=== PATIENT | female | born 1950 | race Caucasian/White ===

== ENCOUNTER → 2020-09-28 10:38 | Outpatient (CLI) | payer MEDICARE, SELFPAY ==
[2020-09-28] MEDS: COVID-19 VACC #1, MRNA(MOD) 100 MCG/0.5 ML VIAL IM (11:27)
== END ==
PROVIDERS: Family Provider Family Medicine; PCP Family Medicine; Visit Provider Internal Medicine
DX: Z23 Encounter for immunization (principal)
CPT/HCPCS: 0011A; 91301

== ENCOUNTER → 2020-10-26 10:24 | Outpatient (CLI) | payer MEDICARE, SELFPAY ==
[2020-10-26] MEDS: COVID-19 VACC #2, MRNA(MOD) 100 MCG/0.5 ML VIAL IM (10:27)
== END ==
PROVIDERS: Family Provider Family Medicine; PCP Family Medicine; Visit Provider Internal Medicine
DX: Z23 Encounter for immunization (principal)
CPT/HCPCS: 0012A; 91301

== ENCOUNTER 2020-12-29 13:23 | Inpatient (IN) | payer MEDICARE, SELFPAY ==
[2020-12-29] VITALS (17 sets, daily range): BP systolic 121–162; BP diastolic 61–115; PULSE 82–111; RESP 20–43; TEMP 36–37; O2SAT 90–97; BMI 80.6; BMI 36.6
--- NOTE | 2020-12-29 13:38 | DI.RAD.S_ITS ---
PROCEDURE: XR CHEST 1V INDICATIONS: dyspnea TECHNIQUE: One view of the chest was acquired. COMPARISON: None. FINDINGS: Surgical changes and devices: Right axillary and breast clips.. Lungs and pleura: Moderate right pleural effusion. Right basilar atelectasis. Question mild pulmonary edema. Mediastinum: Mediastinal contours appear normal. Severe cardiomegaly. Bones and chest wall: No suspicious bony lesions. Overlying soft tissues appear unremarkable. IMPRESSION: Congestive heart failure Dictated by: Nitin Moe M.D. on 12/29/2020 at 13:59 Approved by: Nitin Moe M.D. on 12/29/2020 at 14:01
--- NOTE | 2020-12-29 13:55 | PC.NURSE ---
PIV attempt x2 unsuccessful. Pressure dressing applied.
--- NOTE | 2020-12-29 14:11 | PC.NURSE ---
placed patient on 2LNC, reports improvement almost immediately. Sats from 90-96%
[2020-12-29 14:18] LABS: Add Manual Diff / Slide Review NO; Basophils Absolute Auto 100 /uL (0-100); Basophils Percent Auto 0.9 % (0-2); Eosinophils Absolute Auto 100 /uL (0-450); Eosinophils Percent Auto 1.2 % (2-4); Hematocrit 37.4 % (36-46); Hemoglobin 12.1 g/dL (12.0-16.0); Lymphocytes Absolute Auto 1100 /uL (1100-4500); Lymphocytes Percent Auto 16.3 % (25-40); Mean Corpuscular HGB Conc 32.4 % (30-36); Mean Corpuscular Hemoglobin 30.7 PG (26-34); Mean Corpuscular Volume 94.6 fL (80-100); Monocytes Absolute Auto 500 /uL (0-900); Monocytes Percent Auto 7.1 % (3-14); Neutrophils Absolute Auto 5200 /uL (1500-7000); Neutrophils Percent Auto 74.5 % (50-75); Platelet Count 271 X10^3/uL (150-400); Red Blood Cell Count 3.96 X10^6/uL (4.0-5.2)
[2020-12-29 14:24] LABS: D Dimer 579 ng/mL (<230)
[2020-12-29 14:28] LABS: Alanine Aminotransferase 28 IU/L (<35); Albumin 3.9 g/dL (3.5-5.0); Alkaline Phosphatase 70 U/L (38-126); Aspartate Aminotransferase 45 IU/L (14-36); Bilirubin Total 0.8 mg/dL (0.2-1.3); Blood Urea Nitrogen 12 mg/dL (7-17); Carbon Dioxide 25 mmol/L (22-32); Chloride 106 mmol/L (98-107); Estimated Glomerular Filt Rate > 60.0 mL/min (>60); Globulin 3.8 g/dL (1.7-4.1); Glucose 114 mg/dL (80-110); Lipase 65 U/L (23-300); Magnesium 1.9 mg/dL (1.6-2.3); Sodium 137 mmol/L (137-145); Total Protein 7.7 g/dL (6.3-8.2)
[2020-12-29 14:31] LABS: HEMOLYSIS 92 (0-50)
[2020-12-29 14:32] LABS: COVID19 - ADMIT (NP swab/PCR) Negative (Negative)
[2020-12-29 14:39] LABS: NT-proBNP (BNP-Adult 18+) 1840 pg/mL (<125); Troponin I < 0.012 ng/mL (0.01-0.034)
--- NOTE | 2020-12-29 14:43 | ED_ITS ---
HPI - General Adult General Chief complaint: Shortness of Breath/Dyspnea Stated complaint: SOB, shoulders ache, feet swelling Time Seen by Provider: 12/29/20 13:38 Source: patient Mode of arrival: Ambulatory History of Present Illness HPI narrative: 70-year-old woman presents with increasing dyspnea and orthopnea to the point she was unable to lay down at all last night and unable to sleep. She notes that she had breast cancer in 1998 and has had her gallbladder out and other than that has had no further interaction with physicians or the medical community. She states that she has been feeling slightly more short of breath over the last week, does not describe palpitations, chest pain fevers or productive cough. She does note that her lower extremities do have a bit more swelling than usual. She notes that she has had an overall weight gain in the last year but does not specifically note any changes in the last few days. She denies headaches, weakness or dizziness. She has had no abdominal pain, vomiting, diarrhea, constipation. Related Data Allergies Allergy/AdvReac Type Severity Reaction Status Date / Time INGREDIENT: NDA - NO KNOWN Allergy Unknown Uncoded 12/10/17 12:55 DRUG ALLERGIES Review of Systems Review of Systems Narrative: Remainder of complete review of systems is otherwise unremarkable except for that included in the HPI. Patient History Social History Smoking Status: Current every day smoker Smoking Status: Current every day smoker tobacco type: cigarettes Substance Use Type: does not use Exam Narrative Exam Narrative: General: Fatigued appearing but no acute distress. Able to give a complete and coherent history, speaking in full sentences. Well- nourished well-developed HEENT: Moist mucous membranes, normal sclera with reactive pupils, Neck: Positive JVD when sitting upright, supple Respiratory: Lungs with bibasilar crackles. Full and symmetrical air movement Cardiac: Regular rate and rhythm no murmurs, distant heart sounds. No bruits Abdomen: Soft, nontender, good bowel tones, no flank pain Skin: Pale but otherwise Warm and dry, no rashes Neurologic: Grossly neurologically intact with no obvious asymmetries or abnormalities Extremities: No trauma, well perfused, her 1+ bilateral lower extremity edema Psych: Cooperative, appropriate insight and affect Initial Vital Signs Initial Vital Signs: Vital Signs Temperature 98.6 F 12/29/20 13:34 Pulse Rate 100 H 12/29/20 13:34 Respiratory Rate 24 12/29/20 13:34 Blood Pressure 158/102 H 12/29/20 13:34 Pulse Oximetry 91 12/29/20 13:34 Course Orders Ordered: ED Orders 12/29/20 13:37 EKG-12 Lead Stat 12/29/20 13:38 XR chest 1V Stat Urinalysis and Microscopic Stat 12/29/20 13:48 COVID19 - ADMIT (PHOTOCOPY OPERATOR swab/PCR) Stat 12/29/20 14:05 Complete Blood Count AUTO DIFF Stat Comprehensive Metabolic Panel Stat D Dimer Stat Lipase Stat Magnesium Stat NT-proBNP (BNP-Adult 18+) Stat Thyroid Stimulating Hormone Stat Troponin I Stat 12/29/20 14:48 CT angio chest PE protocol Stat Acetaminophen (Acetaminophen 325 Mg Tablet) 650 mg PO Q6HR PRN PRN Reason: Fever/Mild Pain (1-3) Enoxaparin Sodium (Enoxaparin 40 Mg/0.4 Ml Syringe) 40 mg SUBCUT DAILY ADRY Furosemide (Furosemide 40 Mg/4 Ml Vial) 40 mg IV 0800,1700 ADRY Ondansetron HCl (Ondansetron 4 Mg/2 Ml Inj) 4 mg IV Q8HR PRN PRN Reason: Nausea And Vomiting Discontinued Medications Furosemide (Furosemide 40 Mg/4 Ml Vial) 40 mg IV NOW ONE Stop: 12/29/20 15:18 Last Admin: 12/29/20 15:20 Dose: 40 mg Documented by: JEY Vital Signs Vital signs: Vital Signs - 8 hr 12/29/20 13:34 12/29/20 14:11 Temperature 98.6 F Pulse Rate 100 H Respiratory Rate 24 28 H Blood Pressure 158/102 H Pulse Oximetry 91 90 L Medical Decision Making Medical Records Medical records reviewed: Yes I reviewed the patient's medical records. Lab Data Lab results reviewed: Yes I reviewed the patient's lab results. Result diagrams: 12/29/20 14:05 12/29/20 14:05 Labs: Lab Results 12/29/20 12/29/20 12/29/20 Range/Units 13:48 14:05 14:05 WBC 7.0 (4.5-11.0) X10^3/uL RBC 3.96 L (4.0-5.2) X10^6/uL Hgb 12.1 (12.0-16.0) g/dL Hct 37.4 (36-46) % MCV 94.6 (80-100) fL MCH 30.7 (26-34) PG MCHC 32.4 (30-36) % RDW 15.0 H (11.6-14.8) % Plt Count 271 (150-400) X10^3/uL Neut % (Auto) 74.5 (50-75) % Lymph % (Auto) 16.3 L (25-40) % [place] % (Auto) 7.1 (3-14) % Eos % (Auto) 1.2 L (2-4) % Baso % (Auto) 0.9 (0-2) % Neut # (Auto) 5200 (6613-6226) /uL Lymph # (Auto) 1100 (2025-1286) /uL [place] # (Auto) 500 (0-900) /uL Eos # (Auto) 100 (0-450) /uL Baso # (Auto) 100 (0-100) /uL D-Dimer 579 H (<230) ng/mL Sodium (137-145) mmol/L Potassium (3.4-5.1) mmol/L Chloride (98-107) mmol/L Carbon Dioxide (22-32) mmol/L BUN (7-17) mg/dL Creatinine (0.52-1.04) mg/dL Estimated GFR (>60) mL/min BUN/Creatinine Ratio (6-22) Glucose (80-110) mg/dL Calcium (8.4-10.2) mg/dL Magnesium (1.6-2.3) mg/dL Total Bilirubin (0.2-1.3) mg/dL AST (14-36) IU/L ALT (<35) IU/L Alkaline Phosphatase (38-126) U/L Troponin I (0.01-0.034) ng/mL NT-Pro-B Natriuret Pep (<125) pg/mL Total Protein (6.3-8.2) g/dL Albumin (3.5-5.0) g/dL Globulin (1.7-4.1) g/dL Albumin/Globulin Ratio (1.0-2.8) Lipase (23-300) U/L TSH (0.47-4.68) uIU/mL SARS-CoV-2 (PCR) Negative (Negative) 12/29/20 12/29/20 Range/Units 14:05 14:05 WBC (4.5-11.0) X10^3/uL RBC (4.0-5.2) X10^6/uL Hgb (12.0-16.0) g/dL Hct (36-46) % MCV (80-100) fL MCH (26-34) PG MCHC (30-36) % RDW (11.6-14.8) % Plt Count (150-400) X10^3/uL Neut % (Auto) (50-75) % Lymph % (Auto) (25-40) % [place] % (Auto) (3-14) % Eos % (Auto) (2-4) % Baso % (Auto) (0-2) % Neut # (Auto) (1766-1194) /uL Lymph # (Auto) (2675-8295) /uL [place] # (Auto) (0-900) /uL Eos # (Auto) (0-450) /uL Baso # (Auto) (0-100) /uL D-Dimer (<230) ng/mL Sodium 137 (137-145) mmol/L Potassium 4.0 (3.4-5.1) mmol/L Chloride 106 (98-107) mmol/L Carbon Dioxide 25 (22-32) mmol/L BUN 12 (7-17) mg/dL Creatinine 0.50 L (0.52-1.04) mg/dL Estimated GFR > 60.0 (>60) mL/min BUN/Creatinine Ratio 24.0 H (6-22) Glucose 114 H (80-110) mg/dL Calcium 9.0 (8.4-10.2) mg/dL Magnesium 1.9 (1.6-2.3) mg/dL Total Bilirubin 0.8 (0.2-1.3) mg/dL AST 45 H (14-36) IU/L ALT 28 (<35) IU/L Alkaline Phosphatase 70 (38-126) U/L Troponin I < 0.012 (0.01-0.034) ng/mL NT-Pro-B Natriuret Pep 1840 H (<125) pg/mL Total Protein 7.7 (6.3-8.2) g/dL Albumin 3.9 (3.5-5.0) g/dL Globulin 3.8 (1.7-4.1) g/dL Albumin/Globulin Ratio 1.0 (1.0-2.8) Lipase 65 (23-300) U/L TSH 1.58 (0.47-4.68) uIU/mL SARS-CoV-2 (PCR) (Negative) Imaging Data Chest x-ray: Radiologist's Impression: FINDINGS: Surgical changes and devices: Right axillary and breast clips.. Lungs and pleura: Moderate right pleural effusion. Right basilar atelectasis. Question mild pulmonary edema. Mediastinum: Mediastinal contours appear normal. Severe cardiomegaly. Bones and chest wall: No suspicious bony lesions. Overlying soft tissues appear unremarkable. IMPRESSION: Congestive heart failure Dictated by: Nitin Moe M.D. on 12/29/2020 at 13:59 CT scan - chest: Radiologist's Impression: FINDINGS: Image quality: Excellent. Pulmonary arteries: Pulmonary arteries are normal in size, and demonstrate no intraluminal filling defects to suggest central pulmonary embolism. Lungs and pleura: Mild centrilobular emphysema. Subtle patchy bilateral ground -glass opacities may indicate developing pulmonary edema. There is a moderate right pleural effusion and right basilar atelectasis. There is atelectasis in the lingula adjacent to the left heart border. Central and peripheral airways are patent. Mediastinum: Mild cardiomegaly with left ventricular and left atrial enlargement. Shotty nonspecific mediastinal and bilateral hilar. Thoracic aorta is normal in caliber and enhancement. Esophagus is normal in caliber, without hiatal hernia. Bones and chest wall: No suspicious bony lesions. Ribs and thoracic spine appear intact throughout. Thyroid gland 8s unremarkable as visualized. No axillary or supraclavicular adenopathy. Right axillary clips. Abdomen: Probable lipid-laden right adrenal lymph node. Visualized upper abdominal solid organs otherwise appear normal in the early arterial phase of enhancement. IMPRESSION: 1. No evidence acute pulmonary emboli. 2. Congestive heart failure. Dictated by: Nitin Moe M.D. on 12/29/2020 at 15:27 ECG Data Attestation: I personally reviewed and interpreted this ECG as follows: Interpretation: Sinus rhythm at a rate of 95 Left bundle-branch block Not meeting criteria for STEMI in setting of bundle-branch block No comparisons available MDM Narrative Medical decision making narrative: 70-year-old woman with progressive orthopnea and dyspnea without fever or cough. D-dimer is slightly elevated even correcting for age and she does have a distant history of breast cancer. Clinical exam is most consistent with congestive heart failure as his chest x- ray however pulmonary pulmonary embolism as a cause of worsening symptoms certainly remains in the differential and a CT scan of the chest has been ordered. CT scan is consistent with congestive heart failure. No evidence of pneumonia n or pericardial effusion or pulmonary embolism patient will be admitted to the inpatient service for workup of initial presentation of congestive heart failure with oxygen saturations at 90% on 2 L, right pleural effusion no evidence of acute coronary syndrome, infection or pulmonary embolism Discharge Plan Departure Patient Disposition: Admitted As Inpatient Clinical Impression: Congestive heart failure Qualifiers: Heart failure type: unspecified Heart failure chronicity: acute Qualified Code(s): I50.9 - Heart failure, unspecified Admit Date/Time: 12/29/20 15:33 Admit Provider: Adolfo Lomeli
--- NOTE | 2020-12-29 14:48 | DI.CT.S_ITS ---
PROCEDURE: CT ANGIO CHEST PE PROTOCOL INDICATIONS: dyspnea, elevated d dimer TECHNIQUE: After the administration of intravenous contrast, 2 mm thick sections acquired from the pulmonary apices to the posterior costophrenic angles. 3-dimensional maximum intensity projection (MIP) coronal and sagittal reformats were then acquired through the thorax. For radiation dose reduction, the following was used: automated exposure control, adjustment of mA and/or kV according to patient size. COMPARISON: None. FINDINGS: Image quality: Excellent. Pulmonary arteries: Pulmonary arteries are normal in size, and demonstrate no intraluminal filling defects to suggest central pulmonary embolism. Lungs and pleura: Mild centrilobular emphysema. Subtle patchy bilateral ground-glass opacities may indicate developing pulmonary edema. There is a moderate right pleural effusion and right basilar atelectasis. There is atelectasis in the lingula adjacent to the left heart border. Central and peripheral airways are patent. Mediastinum: Mild cardiomegaly with left ventricular and left atrial enlargement. Shotty nonspecific mediastinal and bilateral hilar. Thoracic aorta is normal in caliber and enhancement. Esophagus is normal in caliber, without hiatal hernia. Bones and chest wall: No suspicious bony lesions. Ribs and thoracic spine appear intact throughout. Thyroid gland 8s unremarkable as visualized. No axillary or supraclavicular adenopathy. Right axillary clips. Abdomen: Probable lipid-laden right adrenal lymph node. Visualized upper abdominal solid organs otherwise appear normal in the early arterial phase of enhancement. IMPRESSION: 1. No evidence acute pulmonary emboli. 2. Congestive heart failure. Dictated by: Nitin Moe M.D. on 12/29/2020 at 15:27 Approved by: Nitin Moe M.D. on 12/29/2020 at 15:32
[2020-12-29 14:57] LABS: Thyroid Stimulating Hormone 1.58 uIU/mL (0.47-4.68)
[2020-12-29] MEDS: FUROSEMIDE 40 MG/4 ML VIAL IV (15:20)
--- NOTE | 2020-12-29 15:52 | DI.ECHO.S_ITS ---
[place] +---------+ : : [address] [place] : : : : [id number] : : : : Phone: [phone]+ Echocardiogram Report + + :Name: ARGELIA SULTANA Study Date: 12/30/2020 Height: 65 in : :[facility] ReadingLocation: Weight: 220 lb : : Gender: Female BSA: 2.1 m2 : :: 1950 Age: 70 yrs BP: 109/73 mmHg: :Reason For Study: Congestive Heart Failure : :Ordering Physician: JODI, : :LYNETTE QUINONEZ Performed By: Nino Acevedo : :Referring: LYNETTE ZAPATA : + + Interpretation Summary The left ventricle is severely dilated. Left ventricular systolic function is severely reduced. The ejection fraction is estimated to be 20-25%. There is mild global hypokinesis of the left ventricle. The right ventricle is normal in size and function. The right ventricular systolic pressure is estimated to be at least 47 mmHg based on an estimated right atrial pressure of 8 mm Hg. The left atrium is severely dilated. The right atrium is normal in size. Left ventricular remodelling with mitral valve leaflet tethering. There is severe mitral regurgitation. Flow reversal noted in pulmonary veins consistent with significant mitral regurgitation. Finding is suggestive of ischemic MR. There is mild aortic stenosis. The calculated aortic valve area is 1.9 cm2. The peak aortic velocity is 2.3 m/sec. There is no other significant valvular heart disease. The aortic root is normal size. Procedure: A two-dimensional transthoracic echocardiogram with color flow and Doppler was performed. The study quality was technically adequate. There is no prior echocardiogram noted for this patient. The patient was in sinus rhythm with heart rates between 82-93 bpm during the exam. Left Ventricle: The left ventricle is severely dilated. Left ventricular wall thickness is moderately increased. Left ventricular systolic function is severely reduced. The ejection fraction is estimated to be 20-25%. There is mild global hypokinesis of the left ventricle. There is inferior wall severe hypokinesis. There is basal inferoseptal wall severe hypokinesis. There is mid inferoseptal wall severe hypokinesis. Diastolic function could not be accurately assessed due to confounding valvular disease. Right Ventricle: The right ventricle is normal in size and function. Atria: The left atrium is severely dilated. The right atrium is normal in size. There is no Doppler evidence for an interatrial shunt. Mitral Valve: There is mild mitral annular calcification. Left ventricular remodelling with mitral valve leaflet tethering. There is severe mitral regurgitation. Flow reversal noted in pulmonary veins consistent with significant mitral regurgitation. Aortic Valve: The aortic valve is mildly calcified. There is mild aortic stenosis. The calculated aortic valve area is 1.9 cm2. The peak aortic velocity is 2.3 m/sec. No aortic regurgitation is present. Tricuspid Valve: The tricuspid valve is normal in structure and function. There is mild tricuspid regurgitation. The right ventricular systolic pressure is estimated to be at least 47 mmHg based on an estimated right atrial pressure of 8 mm Hg. Pulmonic Valve: The pulmonic valve is not well seen, but is grossly normal. There is no pulmonic valvular regurgitation. There is no other significant valvular heart disease. Great Vessels: The aortic root is normal size. The dimensions of the ascending aorta are normal. The IVC is dilated (diameter is greater than 2.1 cm) yet it collapses greater than 50% with a sniff. This suggests a right atrial pressure of 8 mm Hg. Pericardium/ Pleura There is no pericardial effusion. There is no pleural effusion. MMode/2D Measurements & Calculations LVIDd: 7.1 cm LVOT diam: 2.0 cm LVIDs: 5.9 cm Ao root diam: 2.5 cm FS: 16.4 % asc Aorta Diam: 2.9 cm IVSd: 1.5 cm LVPWd: 1.0 cm LV gardiner. diameter/BSA (cm/m^2): 3.4 LV sys. diameter/BSA (cm/m^2): 2.9 LA A2 area: 24.7 cm2 RA area: 18.1 cm2 LA A4 area: 28.2 cm2 IVC diam: 2.2 cm LA length (vol): 6.0 cm LA vol: 98.7 ml LA vol index: 47.9 ml/m2 RVD1 (basal): 4.1 cm TAPSE: 2.3 cm Doppler Measurements & Calculations Ao V2 max: 226.4 cm/sec LVOT Max Noe: 135.2 cm/sec Ao V2 mean: 154.0 cm/sec LV V1 max P.3 mmHg Ao max P.5 mmHg LV V1 VTI: 21.4 cm Ao mean P.8 mmHg SATHISH(I,D): 1.9 cm2 Ao V2 VTI: 36.2 cm SATHISH(V,D): 2.0 cm2 sev ratio: 0.59 SATHISH indexed to BSA (cm^2/m^2): 0.94 MV E max noe: 148.0 cm/sec TR max noe: 310.1 cm/sec MV A max noe: 129.2 cm/sec TR max P.5 mmHg MV E/A: 1.1 PA pr(Accel): 52.5 mmHg MV dec time: 0.21 sec MR VTI: 145.5 cm SV(LVOT): 70.1 ml Reading Physician:03:20 PM
--- NOTE | 2020-12-29 17:42 | P.HP_ITS ---
History of Present Illness History of Present Illness Date Patient Seen: 12/29/20 Time Patient Seen: 17:42 Chief complaint: SOB, shoulders ache, feet swelling Narrative: Kailey Guerrero is a 70-year-old female with a past medical history of breast cancer more than 20 years ago (with R lumpectomy, chemo/radiation) who has not seen a primary care doctor in many years who presented with acute worsening of chronic shortness of breath and lower extremity edema. Patient states for the past year she has been having difficulties with shortness of breath, where she is limited to not being able to walk up a flight of stairs or more than a few blocks. Over the past week this has worsened to the point where she is no longer able to move more than a couple of feet and cannot lie flat without that sensation of shortness of breath. She also notes lower extremity edema over the past 2-3 days. She does endorse palpitations sometimes when she lies flat, but cannot recall if this is just her heart pounding or irregular or a fast heart rate. She denies acute worsening of symptoms when she feels palpitations. She denies any chest pain, cough, fever, chills. She denies early satiety, or acute weight gain although she does endorse approximately 15 lb weight gain over the past year but she has not gotten on a scale. Her at bedside states that the patient snores quite loudly and occasionally stops breathing. She also has smoked for many years, has been trying to quit but has been down to 5 cigarettes per day recently. Has decided today she will stop. In the emergency room, the patient was mildly hypertensive, O2 saturation was 90% on room air. She was started on 2 L of supplemental oxygen with improvement in her O2 saturations 97%. During my examination she appeared comfortable on 2 L, but poor waveform on pulse oximetry made it difficult to see if she truly required supplemental oxygen. Laboratory evaluation revealed an unremarkable CBC. D-dimer mildly elevated but negative for age of 89. Chemistries were unremarkable except for mild elevation AST at 45. Troponin was negative. ProBNP was 1840. TSH was unremarkable at 1.58. COVID-19 testing was negative. Chest x-ray showed a right-sided pleural effusion and bilateral patchy infiltrates consistent with heart failure as well as cardiomegaly. Patient had a CT angiogram as well which did not reveal evidence of pulmonary embolism but does show cardiomegaly, bilateral down gas opacities and a moderate right-sided pleural effusion. Patient was given 40 mg of IV furosemide and admitted to Medicine for further evaluation of presumed acute heart failure. Patient History Medical History Breast cancer Surgical History History of hysterectomy History of lumpectomy of right breast Family & Social History Family History Sister Kidney disease Diabetes mellitus Congestive heart failure Safety & Behavioral: Feels Safe in Current Yes Environment Been Physically Hurt or No Threatened By a Person Tobacco & Substance use: Smoking Status Current every day smoker Substance Use Type does not use Meds Home Medications and Allergies Home Medications Medication Instructions Recorded Confirmed Type No Known Home Medications 12/29/20 12/29/20 History Allergies Allergy/AdvReac Type Severity Reaction Status Date / Time INGREDIENT: NDA - NO KNOWN Allergy Unknown Uncoded 12/10/17 12:55 DRUG ALLERGIES Review of Systems Review of Systems Narrative: All other systems reviewed with the patient and are negative unless otherwise stated. Exam Vital Signs (past 8 hours): - 12/29/20 13:31 12/29/20 13:32 12/29/20 13:34 Temperature 98.6 F Pulse Rate 104 H 100 H Respiratory Rate 24 Blood Pressure 158/102 H 158/102 H Pulse Oximetry 91 91 12/29/20 14:00 12/29/20 14:11 12/29/20 14:30 Temperature Pulse Rate 93 H 85 Respiratory Rate 33 H 28 H 26 H Blood Pressure Pulse Oximetry 92 90 L 96 12/29/20 15:00 12/29/20 15:14 12/29/20 15:30 Temperature Pulse Rate 88 109 H 111 H Respiratory Rate 31 H 36 H 43 H Blood Pressure 162/115 H Pulse Oximetry 94 93 12/29/20 16:00 12/29/20 16:01 12/29/20 16:50 Temperature Pulse Rate 97 H 97 H Respiratory Rate 34 H 31 H Blood Pressure 125/61 Pulse Oximetry 94 95 95 12/29/20 17:05 Temperature 97.1 F L Pulse Rate 94 H Respiratory Rate 20 Blood Pressure 124/70 Pulse Oximetry 97 Oxygen Delivery Method Nasal Cannula Oxygen Flow Rate 2 Narrative Exam Narrative: GENERAL APPEARANCE: Well developed, well nourished, obese female with BMI 36.6 in no acute distress. Mild dyspnea with speaking, on supplemental O2. SKIN: Inspection of the skin reveals no rashes, ulcerations or petechiae. HEENT: Normocephalic atraumatic, extraocular muscles are intact, oropharynx is clear and mucous membranes are moist, neck is supple without adenopathy NECK: Supple and symmetric. There was no thyroid enlargement, and no tenderness, or masses were felt. + JVD + hepatojugular. CHEST: Normal AP diameter and normal contour without any kyphoscoliosis. LUNGS: Auscultation of the lungs revealed bibasilar crackles, no wheezing. CARDIOVASCULAR: There was a regular rate and rhythm without any murmurs, gallops, rubs. Peripheral pulses were 2+ and symmetric. ABDOMEN: Soft and nontender with normal bowel sounds. MUSCULOSKELETAL: There was no tenderness or effusions noted. Muscle strength and tone were normal. EXTREMITIES: No cyanosis, clubbing. +1 non-pitting edema bilaterally. NEUROLOGIC: Alert and oriented x 3. Normal affect. Strength is +5/5 in the Upper Extremities and Lower Extremities Bilaterally. Sensation to touch was normal. Objective ECG Impression: sinus rhythm with LBBB, with QRS of 184. Imaging CT angiogram chest: Radiologist's impression: IMPRESSION: 1. No evidence acute pulmonary emboli. 2. Congestive heart failure. Chest x-ray: My impression: R pleural effusion, mild pulmonary edema. Radiologist's impression: PROCEDURE: XR CHEST 1V INDICATIONS: dyspnea TECHNIQUE: One view of the chest was acquired. COMPARISON: None. FINDINGS: Surgical changes and devices: Right axillary and breast clips.. Lungs and pleura: Moderate right pleural effusion. Right basilar atelectasis. Question mild pulmonary edema. Mediastinum: Mediastinal contours appear normal. Severe cardiomegaly. Bones and chest wall: No suspicious bony lesions. Overlying soft tissues appear unremarkable. IMPRESSION: Congestive heart failure Labs Result Diagrams: 12/29/20 14:05 12/29/20 14:05 Labs: Laboratory Results - last 24 hr 12/29/20 12/29/20 12/29/20 13:48 14:05 14:05 WBC 7.0 RBC 3.96 L Hgb 12.1 Hct 37.4 MCV 94.6 MCH 30.7 MCHC 32.4 RDW 15.0 H Plt Count 271 Neut % (Auto) 74.5 Lymph % (Auto) 16.3 L Frontier % (Auto) 7.1 Eos % (Auto) 1.2 L Baso % (Auto) 0.9 Neut # (Auto) 5200 Lymph # (Auto) 1100 Frontier # (Auto) 500 Eos # (Auto) 100 Baso # (Auto) 100 D-Dimer 579 H Sodium Potassium Chloride Carbon Dioxide BUN Creatinine Estimated GFR BUN/Creatinine Ratio Glucose Calcium Magnesium Total Bilirubin AST ALT Alkaline Phosphatase Troponin I NT-Pro-B Natriuret Pep Total Protein Albumin Globulin Albumin/Globulin Ratio Lipase TSH SARS-CoV-2 (PCR) Negative 12/29/20 12/29/20 14:05 14:05 WBC RBC Hgb Hct MCV MCH MCHC RDW Plt Count Neut % (Auto) Lymph % (Auto) Frontier % (Auto) Eos % (Auto) Baso % (Auto) Neut # (Auto) Lymph # (Auto) Frontier # (Auto) Eos # (Auto) Baso # (Auto) D-Dimer Sodium 137 Potassium 4.0 Chloride 106 Carbon Dioxide 25 BUN 12 Creatinine 0.50 L Estimated GFR > 60.0 BUN/Creatinine Ratio 24.0 H Glucose 114 H Calcium 9.0 Magnesium 1.9 Total Bilirubin 0.8 AST 45 H ALT 28 Alkaline Phosphatase 70 Troponin I < 0.012 NT-Pro-B Natriuret Pep 1840 H Total Protein 7.7 Albumin 3.9 Globulin 3.8 Albumin/Globulin Ratio 1.0 Lipase 65 TSH 1.58 SARS-CoV-2 (PCR) Assessment & Plan Assessment & Plan narrative: Kailey Guerrero is a 70-year-old female with a past medical history of breast cancer more than 20 years ago (with R lumpectomy, chemo/radiation) who has not seen a primary care doctor in many years who presented with acute worsening of chronic shortness of breath and lower extremity edema. She is admitted to Medicine for further evaluation of presumed acute heart failure. 1. Acute heart failure, present on admission - patient with prolonged dyspnea on exertion (1 block flat or <1 flight of stairs) worsened over the past week to now dyspnea with minimal exertion and lower extremity edema. - improved symptoms with IV lasix in the ER. - will continue IV lasix, 40 mg BID. Continue to follow Is and Os. 1.5 L fluid restriction. - RT evaluation and treatment placed on 2L of supplemental O2, may have acute respiratory failure but will need adequate evaluation with proper waveform. consider CPAP therapy if needed given reported symptoms of STARLA. - TTE ordered. EKG with wide QRS (184 ms) and LBBB. Consider cardiology evaluation as inpatient or more likely outpatient. - continue telemetry. Electrolytes unremarkable on admission. - check A1c, and lipid panel. TSH unremarkable - CT angio negative for PE. Check 8 hour troponin to r/o ACS given LBBB on EKG. No known prior EKG. 2. R pleural effusion, acute, present on admission - if hypoxic and not improving with diuresis consider thoracentesis given etiology is likely heart failure at this time. History of R breast cancer and chemo/radiation but given clinical picture malignancy felt to be much less likely. 3. possible acute respiratory failure with hypoxia - will further assess with accurate pulse oximetry, 90% on RA in the ER with mild tachypnea when placed on 2L O2. - continue diuresis as noted above. 4. elevated AST, present on admission - suspect related to acute volume overload. continue to monitor while diuresing. 5. Tobacco use patient counseled on cessation, she is ready to quit. Provide nicotine patch if desired. Code: Full, surrogate decision maker is her . Dispo: Admit as inpatient as her stay is expeceted to exceed two midnights given new diagnosis of heart failure. DVT: Lovenox dialy COVID-19 COVID-19 status: Negative
[2020-12-29 22:33] LABS: Troponin I 0.022 ng/mL (0.01-0.034)
[2020-12-29] MEDS: MELATONIN 3 MG TABLET 6 MG PO (23:27)
[2020-12-30] VITALS (13 sets, daily range): BP systolic 88–137; BP diastolic 60–87; PULSE 77–94; RESP 16–20; TEMP 36.1–36.4; O2SAT 88–96
--- NOTE | 2020-12-30 01:05 | PC.NURSE ---
Addendum entered by Karen Singleton R.N. 12/30/20 06:13: Last O2 sat was 93% and order is to maintain > 89% so now that patient is awake decreased oxygen to 1L/min and will titrate as able. Original Note: patient is alert and oriented. Breath sounds with crackles in bilateral mid lobes and very diminished in lower lobes. On oxygen at 1.5L/min per NC with sat of 95%. Patient states she is improved but still feels SOB both with activity and at rest. HRR w/telemetry reading of SR w/BBB. Denies nausea. BT present and abdomen is soft; reports having had BM in a.m. Denies dysuria, frequency or urgency with urination. Able to to turn self in bed and is up to BSC with SBA. On fluid restriction of 1500cc/24h. Denies pain. Fall risk score is low but instructed to call for assist when getting out of bed and both patient and spouse verbalize agreement. Spouse rooming in.
[2020-12-30 05:17] LABS: Add Manual Diff / Slide Review NO; Basophils Absolute Auto 100 /uL (0-100); Basophils Percent Auto 1.2 % (0-2); Eosinophils Absolute Auto 100 /uL (0-450); Eosinophils Percent Auto 1.4 % (2-4); Hematocrit 35.5 % (36-46); Hemoglobin 11.9 g/dL (12.0-16.0); Lymphocytes Absolute Auto 1200 /uL (1100-4500); Lymphocytes Percent Auto 14.9 % (25-40); Mean Corpuscular HGB Conc 33.4 % (30-36); Mean Corpuscular Hemoglobin 31.3 PG (26-34); Mean Corpuscular Volume 93.6 fL (80-100); Monocytes Absolute Auto 700 /uL (0-900); Monocytes Percent Auto 9.2 % (3-14); Neutrophils Absolute Auto 5700 /uL (1500-7000); Neutrophils Percent Auto 73.3 % (50-75); Platelet Count 252 X10^3/uL (150-400); Red Blood Cell Count 3.79 X10^6/uL (4.0-5.2); Red Cell Distribution Width 14.4 % (11.6-14.8); White Blood Cell Count 7.8 X10^3/uL (4.5-11.0)
[2020-12-30 05:42] LABS: Alanine Aminotransferase 31 IU/L (<35); Albumin 3.6 g/dL (3.5-5.0); Alkaline Phosphatase 70 U/L (38-126); Aspartate Aminotransferase 35 IU/L (14-36); BUN Creatinine Ratio 19.7 (6-22); Bilirubin Total 0.7 mg/dL (0.2-1.3); Bilirubin Unconjugated 0.7 mg/dL (0.0-1.1); Blood Urea Nitrogen 12 mg/dL (7-17); Calcium 9.1 mg/dL (8.4-10.2); Carbon Dioxide 28 mmol/L (22-32); Chloride 106 mmol/L (98-107); Cholesterol 208 mg/dL (140-199); Estimated Glomerular Filt Rate > 60.0 mL/min (>60); Globulin 3.5 g/dL (1.7-4.1); Glucose 100 mg/dL (80-110); HDL Cholesterol 36 mg/dL (40-60); HEMOLYSIS < 15 (0-50); LDL Cholesterol Calculated 154 mg/dL (<100); Magnesium 2.1 mg/dL (1.6-2.3); Potassium 3.6 mmol/L (3.4-5.1); Sodium 139 mmol/L (137-145); Total Protein 7.1 g/dL (6.3-8.2); Triglycerides 89 mg/dL (35-150)
[2020-12-30 05:48] LABS: Hemoglobin A1C% w Est Avg Glu 5.3 % (4.0-6.0)
[2020-12-30] MEDS: FUROSEMIDE 40 MG/4 ML VIAL IV ×2 (08:14→17:59)
[2020-12-30] MEDS: ENOXAPARIN 40 MG/0.4 ML SYRINGE SUBCUT (08:14)
[2020-12-30] MEDS: SODIUM CHLORIDE 0.9% FLUSH 10 ML IV ×2 (08:14→21:12)
--- NOTE | 2020-12-30 10:51 | P.PN_ITS ---
Subjective Subjective Date Patient Seen: 12/30/20 Time Patient Seen: 10:51 Interval history: Kailey Guerrero is a 70-year-old female with a past medical history of breast cancer more than 20 years ago (with R lumpectomy, chemo/radiation) who was admitted with probable acute heart failure. She feels slightly improved today but has only received 1 dose of Lasix, will continue with Lasix twice daily again today. She did desaturate to 88% on room air this morning but is saturating well at 93% on 1 L. echocardiogram is pending. Exam Vital Signs (past 8 hours): - 12/30/20 04:00 12/30/20 08:00 12/30/20 08:23 Temperature 97.3 F L 97.2 F L Pulse Rate 94 H 80 Respiratory Rate 18 18 Blood Pressure 137/87 109/73 Pulse Oximetry 93 93 93 Oxygen Delivery Method Nasal Cannula Oxygen Flow Rate 1 Narrative Exam Narrative: GENERAL APPEARANCE: Well developed, well nourished, obese female with BMI 36.6 in no acute distress. improved dyspnea with speaking, on supplemental O2. SKIN: Inspection of the skin reveals no rashes, ulcerations or petechiae. HEENT: Normocephalic atraumatic, extraocular muscles are intact, oropharynx is clear and mucous membranes are moist, neck is supple without adenopathy NECK: Supple and symmetric. There was no thyroid enlargement, and no tenderness, or masses were felt. improved JVD, but still present. CHEST: Normal AP diameter and normal contour without any kyphoscoliosis. LUNGS: Auscultation of the lungs revealed bibasilar crackles, to mid lung, RLL diminshed breath sounds. no wheezing. CARDIOVASCULAR: There was a regular rate and rhythm without any murmurs, gallops, rubs. Peripheral pulses were 2+ and symmetric. ABDOMEN: Soft and nontender with normal bowel sounds. MUSCULOSKELETAL: There was no tenderness or effusions noted. Muscle strength and tone were normal. EXTREMITIES: No cyanosis, clubbing. Trace to no edema today. NEUROLOGIC: Alert and oriented x 3. Normal affect. Strength is +5/5 in the Upper Extremities and Lower Extremities Bilaterally. Sensation to touch was normal. Objective Labs Result Diagrams: 12/30/20 04:57 12/30/20 04:57 Labs: Laboratory Results - last 24 hr 04/12/29/20 12/29/20 13:48 14:05 14:05 WBC 7.0 RBC 3.96 L Hgb 12.1 Hct 37.4 MCV 94.6 MCH 30.7 MCHC 32.4 RDW 15.0 H Plt Count 271 Neut % (Auto) 74.5 Lymph % (Auto) 16.3 L [place]ole % (Auto) 7.1 Eos % (Auto) 1.2 L Baso % (Auto) 0.9 Neut # (Auto) 5200 Lymph # (Auto) 1100 [place] # (Auto) 500 Eos # (Auto) 100 Baso # (Auto) 100 D-Dimer 579 H Sodium Potassium Chloride Carbon Dioxide BUN Creatinine Estimated GFR BUN/Creatinine Ratio Glucose Hemoglobin A1c Calcium Magnesium Total Bilirubin Conjugated Bilirubin Unconjugated Bilirubin AST ALT Alkaline Phosphatase Troponin I NT-Pro-B Natriuret Pep Total Protein Albumin Globulin Albumin/Globulin Ratio Triglycerides Cholesterol LDL Cholesterol, Calc HDL Cholesterol Lipase TSH SARS-CoV-2 (PCR) Negative 12/29/20 12/29/20 12/29/20 14:05 14:05 22:00 WBC RBC Hgb Hct MCV MCH MCHC RDW Plt Count Neut % (Auto) Lymph % (Auto) [place]ole % (Auto) Eos % (Auto) Baso % (Auto) Neut # (Auto) Lymph # (Auto) [place] # (Auto) Eos # (Auto) Baso # (Auto) D-Dimer Sodium 137 Potassium 4.0 Chloride 106 Carbon Dioxide 25 BUN 12 Creatinine 0.50 L Estimated GFR > 60.0 BUN/Creatinine Ratio 24.0 H Glucose 114 H Hemoglobin A1c Calcium 9.0 Magnesium 1.9 Total Bilirubin 0.8 Conjugated Bilirubin Unconjugated Bilirubin AST 45 H ALT 28 Alkaline Phosphatase 70 Troponin I < 0.012 0.022 NT-Pro-B Natriuret Pep 1840 H Total Protein 7.7 Albumin 3.9 Globulin 3.8 Albumin/Globulin Ratio 1.0 Triglycerides Cholesterol LDL Cholesterol, Calc HDL Cholesterol Lipase 65 TSH 1.58 SARS-CoV-2 (PCR) 12/30/20 12/30/20 12/30/20 04:57 04:57 04:57 WBC 7.8 RBC 3.79 L Hgb 11.9 L Hct 35.5 L MCV 93.6 MCH 31.3 MCHC 33.4 RDW 14.4 Plt Count 252 Neut % (Auto) 73.3 Lymph % (Auto) 14.9 L [place] % (Auto) 9.2 Eos % (Auto) 1.4 L Baso % (Auto) 1.2 Neut # (Auto) 5700 Lymph # (Auto) 1200 [place] # (Auto) 700 Eos # (Auto) 100 Baso # (Auto) 100 D-Dimer Sodium 139 Potassium 3.6 Chloride 106 Carbon Dioxide 28 BUN 12 Creatinine 0.61 Estimated GFR > 60.0 BUN/Creatinine Ratio 19.7 Glucose 100 Hemoglobin A1c 5.3 Calcium 9.1 Magnesium 2.1 Total Bilirubin 0.7 Conjugated Bilirubin 0.0 Unconjugated Bilirubin 0.7 AST 35 ALT 31 Alkaline Phosphatase 70 Troponin I NT-Pro-B Natriuret Pep Total Protein 7.1 Albumin 3.6 Globulin 3.5 Albumin/Globulin Ratio 1.0 Triglycerides 89 Cholesterol 208 H LDL Cholesterol, Calc 154 H HDL Cholesterol 36 L Lipase TSH SARS-CoV-2 (PCR) [facility] Medical History Breast cancer Surgical History History of hysterectomy History of lumpectomy of right breast Family History Sister Kidney disease Diabetes mellitus Congestive heart failure Social History household members: spouse Smoking Status: Former smoker alcohol intake: never Assessment & Plan Assessment & Plan narrative: Kailey Guerrero is a 70-year-old female with a past medical history of breast cancer more than 20 years ago (with R lumpectomy, chemo/radiation) who has not seen a primary care doctor in many years who presented with acute worsening of chronic shortness of breath and lower extremity edema. She is admitted to Medicine for further evaluation of presumed acute heart failure. 1. Acute heart failure, present on admission - patient with prolonged dyspnea on exertion (1 block flat or <1 flight of stairs) worsened over the past week to now dyspnea with minimal exertion and lower extremity edema. - improved symptoms with IV lasix in the ER. - will continue IV lasix, 40 mg BID. Continue to follow Is and Os. 1.5 L fluid restriction. Currently net negative 3.8 L. - RT evaluation and treatment placed on 1L of supplemental O2. consider CPAP therapy if needed given reported symptoms of STARLA. - TTE ordered, pending results. EKG with wide QRS (184 ms) and LBBB. Consider cardiology evaluation as inpatient or more likely outpatient. - continue telemetry. Electrolytes unremarkable on admission. - A1c 5.3%, TC 208, LDL 154, HDL 36, TG 89. TSH unremarkable. ASCVD risk is 11.6% will start high intensity statin therapy. - CT angio negative for PE. 8 hour troponin repeated and was negative given LBBB on EKG. No known prior EKG. 2. R pleural effusion, acute, present on admission - if hypoxic and not improving with diuresis consider thoracentesis given etiology is likely heart failure at this time. History of R breast cancer and chemo/radiation but given clinical picture malignancy felt to be much less likely. 3. acute respiratory failure with hypoxia, improving - dessaturations while awake, sitting upright in bed to 88% on room air. Improved with 1L O2 via NC today. Continue to titrate O2 to between 90-96% while on O2. - continue diuresis as noted above. 4. elevated AST, present on admission - suspect related to acute volume overload. continue to monitor while diuresing. 5. Tobacco use patient counseled on cessation, she is ready to quit. Provide nicotine patch if desired. Code: Full, surrogate decision maker is her . Dispo: remains inpatient, anticipate discharge once medically optimized and off supplemental oxygen, potentially 1-3 more days depending on progress with diuresis. DVT: Lovenox dialy
[2020-12-30] MEDS: METOPROLOL ER 25 MG TABLET 12.5 MG PO (16:37)
[2020-12-30] MEDS: ATORVASTATIN 20 MG TABLET 40 MG PO (21:12)
[2020-12-31] VITALS (12 sets, daily range): BP systolic 100–124; BP diastolic 59–76; PULSE 69–78; RESP 16–18; TEMP 35.6–36.3; O2SAT 90–98
--- NOTE | 2020-12-31 03:05 | PC.NURSE ---
patient is alert and oriented. Breath sounds with crackles in bilateral mid/lower lobes and diminished right more than left at base. On oxygen at 1L/min per NC with sat of 95%. States she is no longer SOB at rest but does have some SOB when up to BSC. HRR w/telemetry reading of SR w/BBB. Denies nausea. BT present and abdomen is soft. Denies dysuria, frequency or urgency with urination except after receiving Lasix. Is independent with bed mobility and up to BSC with SBA; denies unsteadiness or weakness. Denies pain. No edema noted. Fall risk score is low. Continues on fluid restriction but has not even been taking in her allotted amount; discussed importance of maintaining hydration at level of restriction in order to prevent dehydration from diuresis. Spouse rooming in.
[2020-12-31 05:49] LABS: Basophils Absolute Auto 100 /uL (0-100); Eosinophils Absolute Auto 100 /uL (0-450); Lymphocytes Absolute Auto 1100 /uL (1100-4500); Neutrophils Absolute Auto 5700 /uL (1500-7000); White Blood Cell Count 7.7 X10^3/uL (4.5-11.0)
[2020-12-31 05:55] LABS: Add Manual Diff / Slide Review NO; Basophils Percent Auto 1.1 % (0-2); Eosinophils Percent Auto 1.6 % (2-4); Hematocrit 36.1 % (36-46); Hemoglobin 12.1 g/dL (12.0-16.0); Lymphocytes Percent Auto 14.4 % (25-40); Mean Corpuscular HGB Conc 33.6 % (30-36); Mean Corpuscular Hemoglobin 31.3 PG (26-34); Monocytes Absolute Auto 700 /uL (0-900); Neutrophils Percent Auto 73.9 % (50-75); Platelet Count 266 X10^3/uL (150-400); Red Blood Cell Count 3.88 X10^6/uL (4.0-5.2); Red Cell Distribution Width 14.6 % (11.6-14.8)
[2020-12-31 06:02] LABS: Alanine Aminotransferase 32 IU/L (<35); Albumin 3.7 g/dL (3.5-5.0); Alkaline Phosphatase 70 U/L (38-126); Aspartate Aminotransferase 35 IU/L (14-36); BUN Creatinine Ratio 32.2 (6-22); Bilirubin Total 0.7 mg/dL (0.2-1.3); Bilirubin Unconjugated 0.6 mg/dL (0.0-1.1); Blood Urea Nitrogen 19 mg/dL (7-17); Calcium 9.2 mg/dL (8.4-10.2); Carbon Dioxide 31 mmol/L (22-32); Chloride 104 mmol/L (98-107); Estimated Glomerular Filt Rate > 60.0 mL/min (>60); Globulin 3.6 g/dL (1.7-4.1); Glucose 92 mg/dL (80-110); HEMOLYSIS < 15 (0-50); Magnesium 2.1 mg/dL (1.6-2.3); Potassium 3.5 mmol/L (3.4-5.1); Sodium 140 mmol/L (137-145); Total Protein 7.3 g/dL (6.3-8.2)
[2020-12-31] MEDS: FUROSEMIDE 40 MG/4 ML VIAL IV ×2 (07:50→17:29)
[2020-12-31] MEDS: ENOXAPARIN 40 MG/0.4 ML SYRINGE SUBCUT (08:47)
[2020-12-31] MEDS: SODIUM CHLORIDE 0.9% FLUSH 10 ML IV (08:48)
[2020-12-31] MEDS: lisinopriL 5 MG TABLET 2.5 MG PO (08:48)
[2020-12-31] MEDS: METOPROLOL ER 25 MG TABLET 12.5 MG PO (08:49)
[2020-12-31] MEDS: POTASSIUM CHLORIDE 20 MEQ TAB PO (08:59)
--- NOTE | 2020-12-31 13:16 | CM.DPC ---
Discharge Planning/Care Management DCP: note: Case received and met with pt during Team Bedside Rounds. Dr. Lomeli confirmed for all that he was working on a transfer to higher level of cardiac care and he expected pt would transfer to [facility] either today or tomorrow for a cardiac cath procedure. Payer: [employer] Medicare. UR RN Mary was updated. Admission status of INPT: confirmed by Mary. Pt had been aware of this plan prior to Rounds and she seemed at ease thus far. P: tranfer planned. Dr. Lomeli and RN coordinator woirking on same. CM Discharge Assessment Start: 12/31/20 13:15 Freq: Status: Active Protocol: Document 12/31/20 13:15 ITV (Rec: 12/31/20 13:16 ITV [id number]) Discharge Planning Assessment Advance Directives? No History Provided By Patient,Medical Record Prior Living Arrangements House Household Members spouse Is patient alert and oriented? Yes Discharge Plan Transfer to Higher Level of Care
--- NOTE | 2020-12-31 16:16 | PM.DS.1 ---
History of Present Illness History of Present Illness Date Patient Seen: 12/31/20 Time Patient Seen: 16:39 Chief complaint: SOB, shoulders ache, feet swelling Narrative: Kailey Guerrero is a 70-year-old female with a past medical history of breast cancer more than 20 years ago (with R lumpectomy, chemo/radiation) who has not seen a primary care doctor in many years who presented with acute worsening of chronic shortness of breath and lower extremity edema. Patient states for the past year she has been having difficulties with shortness of breath, where she is limited to not being able to walk up a flight of stairs or more than a few blocks. Over the past week this has worsened to the point where she is no longer able to move more than a couple of feet and cannot lie flat without that sensation of shortness of breath. She also notes lower extremity edema over the past 2-3 days. She does endorse palpitations sometimes when she lies flat, but cannot recall if this is just her heart pounding or irregular or a fast heart rate. She denies acute worsening of symptoms when she feels palpitations. She denies any chest pain, cough, fever, chills. She denies early satiety, or acute weight gain although she does endorse approximately 15 lb weight gain over the past year but she has not gotten on a scale. Her at bedside states that the patient snores quite loudly and occasionally stops breathing. She also has smoked for many years, has been trying to quit but has been down to 5 cigarettes per day recently. Has decided today she will stop. In the emergency room, the patient was mildly hypertensive, O2 saturation was 90% on room air. She was started on 2 L of supplemental oxygen with improvement in her O2 saturations 97%. During my examination she appeared comfortable on 2 L, but poor waveform on pulse oximetry made it difficult to see if she truly required supplemental oxygen. Laboratory evaluation revealed an unremarkable CBC. D-dimer mildly elevated but negative for age of 89. Chemistries were unremarkable except for mild elevation AST at 45. Troponin was negative. ProBNP was 1840. TSH was unremarkable at 1.58. COVID-19 testing was negative. Chest x-ray showed a right-sided pleural effusion and bilateral patchy infiltrates consistent with heart failure as well as cardiomegaly. Patient had a CT angiogram as well which did not reveal evidence of pulmonary embolism but does show cardiomegaly, bilateral down gas opacities and a moderate right-sided pleural effusion. Patient was given 40 mg of IV furosemide and admitted to Medicine for further evaluation of presumed acute heart failure. Discharge Providers Provider Date of admission: 12/29/20 15:33 Discharge Date: 12/31/20 Primary care physician: Roberta Castellanos MD Consults: 12/29/20 16:01 Consult to Respiratory Therapy Evaluate & Treat Comment: Physician Instructions: Evaluate and treat Discharge provider: Adolfo Lomeli DO Summary Hospital Course Discharge Diagnosis: Please see hospital course by problem list noted below. Hospital Course: Kailey Guerrero is a 70-year-old female with a past medical history of breast cancer more than 20 years ago (with R lumpectomy, chemo/radiation) who had not seen a primary care doctor in many years who presented with acute worsening of chronic shortness of breath and lower extremity edema. She was admitted to Medicine for further evaluation of presumed acute heart failure, confirmed with TTE showing EF of 20-25%. 1. Acute systolic heart failure, present on admission - patient with prolonged dyspnea on exertion (1 block flat or <1 flight of stairs for about 1 year) worsened over the past week to now dyspnea with minimal exertion and lower extremity edema. - improved symptoms with IV lasix in the ER. - continued IV lasix, 40 mg BID. Continue to follow Is and Os. 1.5 L fluid restriction. Currently net negative 3.5 L (Though trending more towards net neutral with continued lasix dosing). weight down 2 Kg from 102 > 100. - consider CPAP therapy if needed given reported symptoms of STARLA. - TTE showing EF of 20-25% with multiple areas of hypokinesis, severe MR thought secondary to ischemia, and mild . EKG with wide QRS (184 ms) and LBBB. Cardiology called, Dr. Azar, recommended ischemic evaluation with left heart catheterization given findings. Discussed with patient and she is agreeable for transfer for this procedure. - continue telemetry. Electrolytes unremarkable on admission. - A1c 5.3%, TC 208, LDL 154, HDL 36, TG 89. TSH unremarkable. ASCVD risk is 11.6% started high intensity statin therapy. Asa 81 mg ordered to start 5/3 after TTE findings. - CT angio negative for PE. 8 hour troponin given LBBB on EKG was repeated and was negative . No known prior EKG. - started on low dose metoprolol at 12.5 mg daily and lisinopril 2.5 mg given low-normal BP during her admission thus far. - consider spironolactone depending on symptoms after adequate diuresis. 2. R pleural effusion, acute, present on admission - Etiology is likely heart failure at this time. History of R breast cancer and chemo/radiation but given clinical picture malignancy felt to be much less likely. 3. acute respiratory failure with hypoxia, resolved - desaturations while awake, sitting upright in bed to 88% on room air. Improved with 1L O2 via NC initially.Ultimately weaned from supplemental O2 on HD#2 after diuresis. - continue diuresis as noted above. - CXR with volume overload, R pleural effusion. CTA on admission showing no PE, but cardiomegaly and volume overload. TTE As noted above. 4. elevated AST, present on admission, improved. - suspect related to acute volume overload. continue to monitor while diuresing. 5. Tobacco use patient counseled on cessation, she is ready to quit. Provide nicotine patch if desired though not requested while here. Code: Full, surrogate decision maker is her . Dispo: Transfer to [facility] for left heart cath. Patient does not report a PCP in the area. Needs to establish care as well as with a junior network administrator after evaluation at [facility]. Status at Discharge Cognitive/behavioral status at discharge: oriented Time Spent with Patient Time spent: Greater than 30 minutes Exam Vital Signs (past 8 hours): - 12/31/20 08:48 12/31/20 08:49 12/31/20 09:00 Temperature Pulse Rate 77 77 Respiratory Rate Blood Pressure 124/76 124/76 Pulse Oximetry 95 12/31/20 12:20 12/31/20 14:15 Temperature 97.0 F L Pulse Rate 76 Respiratory Rate 18 Blood Pressure 104/60 Pulse Oximetry 90 L 94 Oxygen Delivery Method Room Air Oxygen Flow Rate 0 Narrative Exam Narrative: GENERAL APPEARANCE: Well developed, well nourished, obese female with BMI 36.6 in no acute distress. improved dyspnea with speaking, on supplemental O2. SKIN: Inspection of the skin reveals no rashes, ulcerations or petechiae. HEENT: Normocephalic atraumatic, extraocular muscles are intact, oropharynx is clear and mucous membranes are moist, neck is supple without adenopathy NECK: Supple and symmetric. There was no thyroid enlargement, and no tenderness, or masses were felt. improved JVD, but still present. CHEST: Normal AP diameter and normal contour without any kyphoscoliosis. LUNGS: Auscultation of the lungs revealed bibasilar crackles, to mid lung, RLL diminshed breath sounds. no wheezing. CARDIOVASCULAR: There was a regular rate and rhythm without any murmurs, gallops, rubs. Peripheral pulses were 2+ and symmetric. ABDOMEN: Soft and nontender with normal bowel sounds. MUSCULOSKELETAL: There was no tenderness or effusions noted. Muscle strength and tone were normal. EXTREMITIES: No cyanosis, clubbing. Trace to no edema today. NEUROLOGIC: Alert and oriented x 3. Normal affect. Strength is +5/5 in the Upper Extremities and Lower Extremities Bilaterally. Sensation to touch was normal. Objective ECG Impression: Impression: sinus rhythm with LBBB, with QRS of 184. Imaging CTA chest: Radiologist's impression: CT angiogram chest: Radiologist's impression: IMPRESSION: 1. No evidence acute pulmonary emboli. 2. Congestive heart failure. Chest x-ray: My impression: R pleural effusion, mild pulmonary edema. Radiologist's impression: PROCEDURE: XR CHEST 1V INDICATIONS: dyspnea TECHNIQUE: One view of the chest was acquired. COMPARISON: None. FINDINGS: Surgical changes and devices: Right axillary and breast clips.. Lungs and pleura: Moderate right pleural effusion. Right basilar atelectasis. Question mild pulmonary edema. Mediastinum: Mediastinal contours appear normal. Severe cardiomegaly. Bones and chest wall: No suspicious bony lesions. Overlying soft tissues appear unremarkable. IMPRESSION: Congestive heart failure Echo: Radiologist's impression: The left ventricle is severely dilated. Left ventricular systolic function is severely reduced. The ejection fraction is estimated to be 20-25%. There is inferior wall severe hypokinesis. There is basal inferoseptal wall severe hypokinesis. There is mid inferoseptal wall severe hypokinesis. There is mild global hypokinesis of the left ventricle. The right ventricle is normal in size and function. The right ventricular systolic pressure is estimated to be at least 47 mmHg based on an estimated right atrial pressure of 8 mm Hg. The left atrium is severely dilated. The right atrium is normal in size. Left ventricular remodelling with mitral valve leaflet tethering. There is severe mitral regurgitation. Flow reversal noted in pulmonary veins consistent with significant mitral regurgitation. Finding is suggestive of ischemic MR. There is mild aortic stenosis. The calculated aortic valve area is 1.9 cm2. The peak aortic velocity is 2.3 m/sec. There is no other significant valvular heart disease. The aortic root is normal size. Labs Result Diagrams: 12/31/20 05:09 12/31/20 05:09 Labs: Laboratory Results - last 24 hr 12/31/20 12/31/20 05:09 05:09 WBC 7.7 RBC 3.88 L Hgb 12.1 Hct 36.1 MCV 93.0 MCH 31.3 MCHC 33.6 RDW 14.6 Plt Count 266 Neut % (Auto) 73.9 Lymph % (Auto) 14.4 L [place] % (Auto) 9.0 Eos % (Auto) 1.6 L Baso % (Auto) 1.1 Neut # (Auto) 5700 Lymph # (Auto) 1100 [place] # (Auto) 700 Eos # (Auto) 100 Baso # (Auto) 100 Sodium 140 Potassium 3.5 Chloride 104 Carbon Dioxide 31 BUN 19 H Creatinine 0.59 Estimated GFR > 60.0 BUN/Creatinine Ratio 32.2 H Glucose 92 Calcium 9.2 Magnesium 2.1 Total Bilirubin 0.7 Conjugated Bilirubin 0.0 Unconjugated Bilirubin 0.6 AST 35 ALT 32 Alkaline Phosphatase 70 Total Protein 7.3 Albumin 3.7 Globulin 3.6 Albumin/Globulin Ratio 1.0 [facility] Medical History Breast cancer Surgical History History of hysterectomy History of lumpectomy of right breast Family History Sister Kidney disease Diabetes mellitus Congestive heart failure Social History household members: spouse Smoking Status: Former smoker alcohol intake: never Discharge Plan Discharge Plan Disposition: er Acute Care Hospital Discharge orders & Medications Follow up/Referrals: Roberta Castellanos MD [Primary Care Provider] - Discharge Data Primary Care Provider: Roberta Castellanos
--- NOTE | 2020-12-31 16:33 | P.PN_ITS ---
Subjective Subjective Date Patient Seen: 12/31/20 Time Patient Seen: 16:34 Interval history: Kailey Guerrero is a 70-year-old female with a past medical history of breast cancer more than 20 years ago (with R lumpectomy, chemo/radiation) who was admitted with acute heart failure. She feels improved shortness of breath today. She was able to be weaned off supplemental oxygen this AM. TTE showed Ef 20-25% with findings consistent with ischemic MR, and mild . Plan is for transfer to [facility] after discussion with cardiology yesterday for a left heart cath. Exam Vital Signs (past 8 hours): - 12/31/20 08:48 12/31/20 08:49 12/31/20 09:00 Temperature Pulse Rate 77 77 Respiratory Rate Blood Pressure 124/76 124/76 Pulse Oximetry 95 12/31/20 12:20 12/31/20 14:15 Temperature 97.0 F L Pulse Rate 76 Respiratory Rate 18 Blood Pressure 104/60 Pulse Oximetry 90 L 94 Oxygen Delivery Method Room Air Oxygen Flow Rate 0 Narrative Exam Narrative: GENERAL APPEARANCE: Well developed, well nourished, obese female with BMI 36.6 in no acute distress. improved dyspnea with speaking, on supplemental O2. SKIN: Inspection of the skin reveals no rashes, ulcerations or petechiae. HEENT: Normocephalic atraumatic, extraocular muscles are intact, oropharynx is clear and mucous membranes are moist, neck is supple without adenopathy NECK: Supple and symmetric. There was no thyroid enlargement, and no tenderness, or masses were felt. improved JVD, but still present. CHEST: Normal AP diameter and normal contour without any kyphoscoliosis. LUNGS: Auscultation of the lungs revealed bibasilar crackles, to mid lung, RLL diminshed breath sounds. no wheezing. CARDIOVASCULAR: There was a regular rate and rhythm without any murmurs, gallops, rubs. Peripheral pulses were 2+ and symmetric. ABDOMEN: Soft and nontender with normal bowel sounds. MUSCULOSKELETAL: There was no tenderness or effusions noted. Muscle strength and tone were normal. EXTREMITIES: No cyanosis, clubbing. Trace to no edema today. NEUROLOGIC: Alert and oriented x 3. Normal affect. Strength is +5/5 in the Upper Extremities and Lower Extremities Bilaterally. Sensation to touch was normal. Objective Labs Result Diagrams: 12/31/20 05:09 12/31/20 05:09 Labs: Laboratory Results - last 24 hr 12/31/20 12/31/20 05:09 05:09 WBC 7.7 RBC 3.88 L Hgb 12.1 Hct 36.1 MCV 93.0 MCH 31.3 MCHC 33.6 RDW 14.6 Plt Count 266 Neut % (Auto) 73.9 Lymph % (Auto) 14.4 L [place] % (Auto) 9.0 Eos % (Auto) 1.6 L Baso % (Auto) 1.1 Neut # (Auto) 5700 Lymph # (Auto) 1100 [place] # (Auto) 700 Eos # (Auto) 100 Baso # (Auto) 100 Sodium 140 Potassium 3.5 Chloride 104 Carbon Dioxide 31 BUN 19 H Creatinine 0.59 Estimated GFR > 60.0 BUN/Creatinine Ratio 32.2 H Glucose 92 Calcium 9.2 Magnesium 2.1 Total Bilirubin 0.7 Conjugated Bilirubin 0.0 Unconjugated Bilirubin 0.6 AST 35 ALT 32 Alkaline Phosphatase 70 Total Protein 7.3 Albumin 3.7 Globulin 3.6 Albumin/Globulin Ratio 1.0 [facility] Medical History Breast cancer Surgical History History of hysterectomy History of lumpectomy of right breast Family History Sister Kidney disease Diabetes mellitus Congestive heart failure Social History household members: spouse Smoking Status: Former smoker alcohol intake: never Assessment & Plan Assessment & Plan narrative: Kailey Guerrero is a 70-year-old female with a past medical history of breast cancer more than 20 years ago (with R lumpectomy, chemo/radiation) who had not seen a primary care doctor in many years who presented with acute worsening of chronic shortness of breath and lower extremity edema. She was admitted to Medicine for further evaluation of presumed acute heart failure, confirmed with TTE showing EF of 20-25%. 1. Acute systolic heart failure, present on admission - patient with prolonged dyspnea on exertion (1 block flat or <1 flight of stairs for about 1 year) worsened over the past week to now dyspnea with minimal exertion and lower extremity edema. - improved symptoms with IV lasix in the ER. - continue IV lasix, 40 mg BID. Continue to follow Is and Os. 1.5 L fluid restriction. Currently net negative 3.5 L (Though trending more towards net neutral with continued lasix dosing). weight down 2 Kg from 102 > 100. - consider CPAP therapy if needed given reported symptoms of STARLA. - TTE showing EF of 20-25% with multiple areas of hypokinesis, severe MR thought secondary to ischemia, and mild . EKG with wide QRS (184 ms) and LBBB. Cardiology called, Dr. Azar, recommended ischemic evaluation with left heart catheterization given findings. Discussed with patient and she is agreeable for transfer for this procedure. - continue telemetry. Electrolytes unremarkable on admission. Telemetry thus far without acute events. - A1c 5.3%, TC 208, LDL 154, HDL 36, TG 89. TSH unremarkable. ASCVD risk is 11.6% started high intensity statin therapy. Asa 81 mg ordered to start 5/3 after TTE findings. - CT angio negative for PE. 8 hour troponin given LBBB on EKG was repeated and was negative . No known prior EKG. - started on low dose metoprolol at 12.5 mg daily and lisinopril 2.5 mg given low-normal BP during her admission thus far. - consider spironolactone depending on symptoms after adequate diuresis. 2. R pleural effusion, acute, present on admission - Etiology is likely heart failure at this time. History of R breast cancer and chemo/radiation but given clinical picture malignancy felt to be much less likely. 3. acute respiratory failure with hypoxia, resolved - desaturations while awake, sitting upright in bed to 88% on room air. Improved with 1L O2 via NC initially.Ultimately weaned from supplemental O2 on H D#2 after diuresis. - continue diuresis as noted above. - CXR with volume overload, R pleural effusion. CTA on admission showing no PE, but cardiomegaly and volume overload. TTE As noted above. 4. elevated AST, present on admission, resolved - suspect related to acute volume overload. continue to monitor while diuresing. 5. Tobacco use patient counseled on cessation, she is ready to quit. Provide nicotine patch if desired though not requested while here. Code: Full, surrogate decision maker is her . Dispo: Transfer to [facility] for left heart cath, awaiting bed availability currently. Patient does not report a PCP in the area. Needs to establish care as well as with a optical instrument inspector after evaluation at [facility]. COVID-19 COVID-19 status: Negative
[2020-12-31] MEDS: ATORVASTATIN 20 MG TABLET 40 MG PO (21:32)
--- NOTE | 2020-12-31 23:20 | PC.NURSE ---
late note: report given to Maria Teresa in [facility]. pt dc'd with PIV. all belongings returned to patient.
== END 2020-12-31 21:49 | disposition short-term general hospital (02) | DRG 291 ==
LOC: ED 13:38 → AC 16:02
PROVIDERS: Admitting Provider Internal Medicine; Emergency Provider Emergency Medicine; Family Provider Family Medicine; PCP Family Medicine; Visit Provider Internal Medicine
DX: I50.21 Acute systolic (congestive) heart failure (principal); J96.01 Acute respiratory failure with hypoxia; I34.0 Nonrheumatic mitral (valve) insufficiency; I35.0 Nonrheumatic aortic (valve) stenosis; Z85.3 Personal history of malignant neoplasm of breast; Z20.822 Contact with and (suspected) exposure to COVID-19; F17.210 Nicotine dependence, cigarettes, uncomplicated; R79.89 Other specified abnormal findings of blood chemistry
CPT/HCPCS: 36415; 71045; 71275; 80048; 80053; 80061; 80076; 83036; 83690; 83735; 83880; 84443; 84484; 85025; 85379; 87635; 93005; 93306; 96374; 99285; C9803; J1650; J1940; Q9967

== ENCOUNTER → 2021-03-06 10:17 | Outpatient (CLI) | payer MEDICARE, SELFPAY ==
[2020-12-29 17:34] VITALS: BMI 36.6
[2021-03-06 12:04] LABS: BUN Creatinine Ratio 30.6 (6-22); Blood Urea Nitrogen 22 mg/dL (7-17); Calcium 9.9 mg/dL (8.4-10.2); Carbon Dioxide 30 mmol/L (22-32); Chloride 103 mmol/L (98-107); Estimated Glomerular Filt Rate > 60.0 mL/min (>60); Glucose 127 mg/dL (80-110); HEMOLYSIS < 15 (0-50); Potassium 4.4 mmol/L (3.4-5.1); Sodium 141 mmol/L (137-145)
== END ==
PROVIDERS: Family Provider Family Medicine; Referring Provider Nurse Practitioner; Visit Provider Nurse Practitioner
DX: I50.22 Chronic systolic (congestive) heart failure (principal)
CPT/HCPCS: 36415; 80048

== ENCOUNTER → 2021-04-09 11:47 | Outpatient (CLI) | payer MEDICARE, SELFPAY ==
[2020-12-29 17:34] VITALS: BMI 36.6
[2021-04-09 14:17] LABS: BUN Creatinine Ratio 23.4 (6-22); Blood Urea Nitrogen 15 mg/dL (7-17); Calcium 9.6 mg/dL (8.4-10.2); Carbon Dioxide 27 mmol/L (22-32); Chloride 104 mmol/L (98-107); Cholesterol 137 mg/dL (140-199); Estimated Glomerular Filt Rate > 60.0 mL/min (>60); Glucose 95 mg/dL (80-110); HDL Cholesterol 50 mg/dL (40-60); HEMOLYSIS < 15 (0-50); LDL Cholesterol Calculated 72 mg/dL (<100); Potassium 4.8 mmol/L (3.4-5.1); Sodium 138 mmol/L (137-145); Triglycerides 74 mg/dL (35-150)
== END ==
PROVIDERS: Family Provider Family Medicine; Referring Provider Nurse Practitioner; Visit Provider Nurse Practitioner
DX: I42.0 Dilated cardiomyopathy (principal); I50.20 Unspecified systolic (congestive) heart failure; E78.2 Mixed hyperlipidemia
CPT/HCPCS: 36415; 80048; 80061

== ENCOUNTER → 2021-07-24 11:40 | Outpatient (CLI) | payer MEDICARE, SELFPAY ==
[2020-12-29 17:34] VITALS: BMI 36.6
[2021-07-24 12:57] LABS: BUN Creatinine Ratio 10.7 (6-22); Blood Urea Nitrogen 8 mg/dL (7-17); Calcium 9.3 mg/dL (8.4-10.2); Carbon Dioxide 28 mmol/L (22-32); Chloride 104 mmol/L (98-107); Estimated Glomerular Filt Rate > 60.0 mL/min (>60); Glucose 95 mg/dL (80-110); HEMOLYSIS < 15 (0-50); Potassium 4.9 mmol/L (3.4-5.1); Sodium 139 mmol/L (137-145)
== END ==
PROVIDERS: Family Provider Family Medicine; Referring Provider Internal Medicine Cardiovascular Disease; Visit Provider Internal Medicine Cardiovascular Disease
DX: I50.22 Chronic systolic (congestive) heart failure (principal)
CPT/HCPCS: 36415; 80048

== ENCOUNTER → 2021-09-10 09:36 | Outpatient (CLI) | payer MEDICARE, SELFPAY ==
[2020-12-29 17:34] VITALS: BMI 36.6
--- NOTE | 2021-09-10 | DI.ECHO.S_ITS ---
[facility] +---------+ Hospital +---------+ : : [address] : [place] : : : : [id number] : : : : Phone: [phone]+ Echocardiogram Report + + :Name: ARGELIA SULTANA Study Date: 09/10/2021 Height: 65 in : :[facility] ReadingLocation: Weight: 230 lb : : Gender: Female BSA: 2.1 m2 : :: 1950 Age: 71 yrs BP: 145/82 mmHg: :Reason For Study: SYSTOLIC HEART FAILURE : :Ordering Physician: YARELY, : :LINDA Performed By: Monisha Hart : :Referring: LINDA PRITCHETT : + + Interpretation Summary The left ventricle is severely dilated. The estimated left ventricular end diastolic volume is 172 ml. The ejection fraction is estimated to be 20-25%. No significant change in LV function. Severe global hypokinesis with akinesis of basal to mid inferior wall and dyskinesis of basal to mid septum. Diastolic parameters suggest a pseudonormalization pattern, consistent with probable elevated filling pressures. The right ventricle is grossly normal size. The right ventricular systolic function is normal. Tented mitral leaflets. There is moderate to severe mitral regurgitation. Flow reversal noted in pulmonary veins consistent with significant mitral regurgitation. There is mild aortic stenosis. There has been no significant change in since the previous study. The IVC is of normal diameter and collapses greater than 50% with a sniff. This suggests a low right atrial pressure of 3 mm Hg. Previous right atrial pressure 8 mmHg with pulmonary artery systolic pressure about 47 mmHg. Procedure: A two-dimensional transthoracic echocardiogram with color flow and Doppler was performed. The study quality was technically adequate. Comparison is made with the echocardiogram of 12/30/2020. The patient was in sinus bradycardia with heart rates between 51-67 bpm during the exam. The patient had a bundle branch block rhythm during the exam. Left Ventricle: The left ventricle is severely dilated. The estimated left ventricular end diastolic volume is 172 ml. There is mild concentric left ventricular hypertrophy. There is no thrombus. The ejection fraction is estimated to be 20-25%. Severe global hypokinesis with akinesis of basal to mid inferior wall and dyskinesis of basal to mid septum. Diastolic parameters suggest a pseudonormalization pattern, consistent with probable elevated filling pressures. Right Ventricle: The right ventricle is grossly normal size. The right ventricular systolic function is normal. Atria: The left atrium is severely dilated. The left atrium has remained unchanged in size since the prior echo exam. Right atrial size is normal. Mitral Valve: There is mild mitral annular calcification. The mitral valve leaflets are mildly calcified. Tented mitral leaflets. There is moderate to severe mitral regurgitation. Flow reversal noted in pulmonary veins consistent with significant mitral regurgitation. Aortic Valve: The aortic valve is trileaflet. The aortic valve is mildly calcified. There is mildly reduced leaflet mobility. The peak aortic velocity is 2.5 m/sec. The aortic valve mean gradient is 13 mmHg. The calculated aortic valve area is 1.9 cm2. The peak aortic velocity on the previous exam was 2.3 m/sec. There is mild aortic stenosis. There has been no significant change since the previous study. No aortic regurgitation is present. Tricuspid Valve: The tricuspid valve is normal in structure and function. There is trace tricuspid regurgitation. Pulmonary artery pressures cannot be estimated because of the lack of a measurable TR jet velocity but the IVC suggests a CVP of around 3 mmHg. Pulmonic Valve: The pulmonic valve leaflets are thin and pliable; valve motion is normal. There is no pulmonic valvular regurgitation. Great Vessels: The aortic root is normal size. The dimensions of the ascending aorta are normal. The IVC is of normal diameter and collapses greater than 50% with a sniff. This suggests a low right atrial pressure of 3 mm Hg. Pericardium/ Pleura There is a trivial pericardial effusion noted. There is an anterior echo-free space consistent with a fat pad. There are no echocardiographic indications of cardiac tamponade. There is no pleural effusion. MMode/2D Measurements & Calculations LVIDd: 6.2 cm LVOT diam: 2.1 cm LVIDs: 5.5 cm Ao root diam: 3.0 cm FS: 11.4 % asc Aorta Diam: 3.0 cm IVSd: 1.2 cm LVPWd: 1.2 cm LV gardiner. diameter/BSA (cm/m^2): 3.0 LV sys. diameter/BSA (cm/m^2): 2.6 LA A2 area: 20.7 cm2 RA long axis: 4.5 cm LA A4 area: 20.7 cm2 RA area: 14.7 cm2 LA length (vol): 5.3 cm RA vol: 40.8 ml LA vol: 69.1 ml RA : 19.4 ml/m2 LA vol index: 32.9 ml/m2 IVC diam: 0.96 cm TAPSE: 1.7 cm Doppler Measurements & Calculations Ao V2 max: 245.8 cm/sec LVOT Max Noe: 133.5 cm/sec Ao V2 mean: 170.7 cm/sec LV V1 max P.1 mmHg Ao max P.7 mmHg LV V1 VTI: 28.4 cm Ao mean P.9 mmHg SATHISH(I,D): 1.9 cm2 Ao V2 VTI: 51.0 cm SATHISH(V,D): 1.9 cm2 sev ratio: 0.56 SATHISH indexed to BSA (cm^2/m^2): 0.91 MV E max noe: 104.7 cm/sec PA V2 max: 120.4 cm/sec MV A max noe: 96.8 cm/sec PA V2 mean: 78.9 cm/sec MV E/A: 1.1 PA mean P.9 mmHg Med Peak E' Noe: 5.1 cm/sec PA pr(Accel): 25.9 mmHg E/E' med: 20.6 Lat Peak E' Noe: 7.1 cm/sec E/E' lat: 14.7 E/e' average: 17.6 MV dec time: 0.31 sec MR ERO: 0.74 cm2 MR PISA: 9.9 cm2 SV(LVOT): 97.6 ml MR flow rate: 369.5 cm3/sec MR PISA radius: 1.3 cm Reading Physician:04:[id number] PM
== END ==
PROVIDERS: Family Provider Family Medicine; Referring Provider Internal Medicine Cardiovascular Disease; Visit Provider Internal Medicine Cardiovascular Disease
DX: I08.0 Rheumatic disorders of both mitral and aortic valves (principal); I50.22 Chronic systolic (congestive) heart failure
CPT/HCPCS: 93306

== ENCOUNTER → 2021-12-06 11:31 | Outpatient (CLI) | payer MEDICARE, SELFPAY ==
[2020-12-29 17:34] VITALS: BMI 36.6
[2021-12-06 12:22] LABS: BUN Creatinine Ratio 14.5 (6-22); Blood Urea Nitrogen 12 mg/dL (7-17); Calcium 10.4 mg/dL (8.4-10.2); Carbon Dioxide 27 mmol/L (22-32); Chloride 103 mmol/L (98-107); Estimated Glomerular Filt Rate > 60.0 mL/min (>60); Glucose 107 mg/dL (80-110); HEMOLYSIS < 15 (0-50); Potassium 4.3 mmol/L (3.4-5.1); Sodium 139 mmol/L (137-145)
== END ==
PROVIDERS: Family Provider Family Medicine; Referring Provider Nurse Practitioner Acute Care; Visit Provider Nurse Practitioner Acute Care
DX: I50.22 Chronic systolic (congestive) heart failure (principal)
CPT/HCPCS: 36415; 80048

== ENCOUNTER → 2022-01-21 11:57 | Outpatient (CLI) | payer MEDICARE, SELFPAY ==
[2020-12-29 17:34] VITALS: BMI 36.6
[2022-01-21 13:14] LABS: HEMOLYSIS < 15 (0-50); Potassium 4.1 mmol/L (3.4-5.1)
[2022-01-21 13:15] LABS: BUN Creatinine Ratio 21.7 (6-22); Blood Urea Nitrogen 20 mg/dL (7-17); Calcium 9.2 mg/dL (8.4-10.2); Carbon Dioxide 27 mmol/L (22-32); Chloride 108 mmol/L (98-107); Estimated Glomerular Filt Rate > 60 mL/min (>60); Glucose 115 mg/dL (80-110); Sodium 140 mmol/L (137-145)
== END ==
PROVIDERS: Family Provider Family Medicine; Referring Provider Nurse Practitioner Acute Care; Visit Provider Nurse Practitioner Acute Care
DX: I50.22 Chronic systolic (congestive) heart failure (principal)
CPT/HCPCS: 36415; 80048

== ENCOUNTER → 2022-04-19 09:03 | Outpatient (CLI) | payer MEDICARE, SELFPAY ==
[2020-12-29 17:34] VITALS: BMI 36.6
--- NOTE | 2022-04-19 | DI.ECHO.S_ITS ---
[facility] +---------+ [facility] +---------+ : : [address] [address] : : : : [id number] : : : : Phone: [phone] +---------+ Echocardiogram Report + + :Name: ARGELIA SULTANA Study Date: 04/19/2022 Height: 65 in : :[facility] ReadingLocation: Weight: 240 lb : : Gender: Female BSA: 2.1 m2 : :: 1950 Age: 71 yrs BP: 136/78 mmHg: :Reason For Study: NICMP : :Ordering Physician: HERO, : :SEB Performed By: Nino Acevedo : :Referring: SEB MONAHAN : + + Interpretation Summary The left ventricle is mildly dilated. This is decreased compared to the previous study. Left ventricular ejection fraction is estimated to be 40 +/- 5%. The right ventricle is normal in size and function. There is a pacemaker lead in the right ventricle. There is mild mitral regurgitation. Compared to the prior echo study, there has been a decrease in the severity of mitral regurgitation. The aortic valve is not well visualized. The peak aortic velocity is 2.19 m/sec. The aortic valve mean gradient is 11 mmHg. The peak aortic velocity on the previous exam was 2.5 m/sec. There is mild aortic stenosis. There is mild tricuspid regurgitation. The right ventricular systolic pressure is estimated to be at least 26 mmHg based on an estimated right atrial pressure of 3 mm Hg. Previously severely dilated LV with LVEF 20 to 25%, moderate to severe MR. In comparison to previous study, LV size has decreased, LVEF is improving, new pacemaker lead. In December 30, 2020 PASP was 47 mmHg with right atrial pressure about 8 mmHg. In this study, it is about 26 mmHg. Procedure: A two-dimensional transthoracic echocardiogram with color flow and Doppler was performed. The study quality was technically adequate. Comparison is made with the echocardiogram of 09/10/2021. The patient has a paced rhythm. Left Ventricle: The left ventricle is mildly dilated. There is mild concentric left ventricular hypertrophy. This is decreased compared to the previous study. There is no thrombus. Left ventricular ejection fraction is estimated to be 40 +/- 5%. There is mild to moderate global hypokinesis of the left ventricle. Septal motion is consistent with conduction abnormality. Diastolic function could not be accurately assessed due to paced rhythm. Right Ventricle: The right ventricle is normal in size and function. There is a pacemaker lead in the right ventricle. Atria: Both atria are normal in size. The left atrium has significantly decreased in size since the prior echo exam. The interatrial septum grossly appears intact with no obvious evidence for an atrial septal defect. Mitral Valve: There is mild mitral annular calcification. The mitral valve leaflets are mildly calcified. There is mild mitral regurgitation. Compared to the prior echo study, there has been a decrease in the severity of mitral regurgitation. Aortic Valve: The aortic valve is mildly calcified. The aortic valve is not well visualized. There is mild aortic stenosis. The aortic valve mean gradient is 11 mmHg. The peak aortic velocity is 2.19 m/sec. The peak aortic velocity on the previous exam was 2.5 m/sec. No aortic regurgitation is present. Tricuspid Valve: The tricuspid valve is normal in structure and function. There is mild tricuspid regurgitation. The right ventricular systolic pressure is estimated to be at least 26 mmHg based on an estimated right atrial pressure of 3 mm Hg. Pulmonic Valve: The pulmonic valve is normal in structure and function. There is no pulmonic valvular regurgitation. Great Vessels: The aortic root is normal size. The dimensions of the ascending aorta are normal. The IVC is of normal diameter and collapses greater than 50% with a sniff. This suggests a low right atrial pressure of 3 mm Hg. Pericardium/ Pleura There is an anterior echo-free space consistent with a fat pad. There is a trivial pericardial effusion noted. There has been no significant change since the previous study. There is no pleural effusion. MMode/2D Measurements & Calculations LVIDd: 5.5 cm LVOT diam: 2.0 cm LVIDs: 4.5 cm Ao root diam: 2.8 cm FS: 19.1 % asc Aorta Diam: 3.0 cm IVSd: 1.2 cm LVPWd: 1.2 cm LV gardiner. diameter/BSA (cm/m^2): 2.6 LV sys. diameter/BSA (cm/m^2): 2.1 LA A2 area: 16.4 cm2 RA long axis: 4.7 cm LA A4 area: 16.9 cm2 RA area: 14.1 cm2 LA length (vol): 5.4 cm RA vol: 36.1 ml LA vol: 43.4 ml RA : 16.9 ml/m2 LA vol index: 20.3 ml/m2 TAPSE: 1.4 cm Doppler Measurements & Calculations Ao V2 max: 219.0 cm/sec LVOT Max Noe: 96.0 cm/sec Ao V2 mean: 152.7 cm/sec LV V1 max P.7 mmHg Ao max P.1 mmHg LV V1 VTI: 19.1 cm Ao mean P.7 mmHg SATHISH(I,D): 1.5 cm2 Ao V2 VTI: 39.1 cm SATHISH(V,D): 1.4 cm2 sev ratio: 0.49 SATHISH indexed to BSA (cm^2/m^2): 0.72 MV E max noe: 51.5 cm/sec TR max noe: 239.6 cm/sec MV A max noe: 52.6 cm/sec TR max P.0 mmHg MV E/A: 0.98 Med Peak E' Noe: 4.5 cm/sec E/E' med: 11.5 Lat Peak E' Noe: 5.7 cm/sec E/E' lat: 9.0 E/e' average: 10.2 MV dec time: 0.35 sec SV(LVOT): 60.1 ml Reading Physician:11:09 AM
== END ==
PROVIDERS: Family Provider Family Medicine; PCP Student in an Organized Health Care Education/Training Program; Referring Provider Nurse Practitioner Acute Care; Visit Provider Nurse Practitioner Acute Care
DX: I42.8 Other cardiomyopathies (principal); I50.22 Chronic systolic (congestive) heart failure; Z95.0 Presence of cardiac pacemaker; I08.3 Combined rheumatic disorders of mitral, aortic and tricuspid valves
CPT/HCPCS: 93306

== ENCOUNTER → 2022-08-16 12:44 | Outpatient (CLI) | payer MEDICARE, SELFPAY ==
[2020-12-29 17:34] VITALS: BMI 36.6
[2022-08-16 15:07] LABS: BUN Creatinine Ratio 17.7 (6-22); Blood Urea Nitrogen 17 mg/dL (7-17); Calcium 10.4 mg/dL (8.4-10.2); Carbon Dioxide 27 mmol/L (22-32); Chloride 101 mmol/L (98-107); Estimated Glomerular Filt Rate > 60 mL/min (>60); Glucose 91 mg/dL (80-110); HEMOLYSIS < 15 (0-50); Magnesium 1.7 mg/dL (1.6-2.3); Potassium 4.7 mmol/L (3.4-5.1); Sodium 138 mmol/L (137-145)
== END ==
PROVIDERS: Family Provider Family Medicine; PCP Student in an Organized Health Care Education/Training Program; Referring Provider Internal Medicine Cardiovascular Disease; Visit Provider Internal Medicine Cardiovascular Disease
DX: I50.22 Chronic systolic (congestive) heart failure (principal)
CPT/HCPCS: 36415; 80048; 83735

== ENCOUNTER → 2022-12-05 09:52 | Outpatient (CLI) | payer MEDICARE, SELFPAY ==
[2020-12-29 17:34] VITALS: BMI 36.6
[2022-12-05 11:41] LABS: BUN Creatinine Ratio 20.8 (6-22); Blood Urea Nitrogen 15 mg/dL (7-17); Calcium 9.2 mg/dL (8.4-10.2); Carbon Dioxide 26 mmol/L (22-32); Chloride 104 mmol/L (98-107); Estimated Glomerular Filt Rate > 60 mL/min (>60); Glucose 120 mg/dL (80-110); HEMOLYSIS < 15 (0-50); Potassium 4.2 mmol/L (3.4-5.1); Sodium 139 mmol/L (137-145)
== END ==
PROVIDERS: Family Provider Family Medicine; PCP Student in an Organized Health Care Education/Training Program; Referring Provider Internal Medicine Cardiovascular Disease; Visit Provider Internal Medicine Cardiovascular Disease
DX: I50.22 Chronic systolic (congestive) heart failure (principal)
CPT/HCPCS: 36415; 80048

== ENCOUNTER → 2023-03-17 15:59 | Outpatient (CLI) | payer MEDICARE, SELFPAY ==
[2020-12-29 17:34] VITALS: BMI 36.6
--- NOTE | 2023-03-17 | DI.ECHO.S_ITS ---
[facility]---------+ [facility] +---------+ : : [address] : [address] : : : : [id number] : : : : Phone: [phone] +---------+ Echocardiogram Report + + :Name: ARGELIA SULTANA Study Date: 03/17/2023 Height: 63 in : :[facility] ReadingLocation: Weight: 260 lb : : Gender: Female BSA: 2.2 m2 : :: 1950 Age: 72 yrs BP: 100/73 mmHg: :Reason For Study: Left Bundle Branch Block : :Ordering Physician: ANSHUL DAUGHERTY Performed By: Chantale Zamudio : :Referring: ANSHUL DAUGHERTY : + + Interpretation Summary The study quality was technically difficult. The left ventricular ejection fraction is normal. The ejection fraction is estimated to be 60-65%. Previous LVEF 40 +/- 5%. Left ventricular systolic function has significantly improved compared to the previous exam. There is a pacemaker lead in the right ventricle. The right ventricle is not well visualized. In limited views, RV function appears to be preserved. The aortic valve is not well visualized. There is mildly reduced leaflet mobility. There is no hemodynamically significant valvular aortic stenosis. There is mild tricuspid regurgitation. Compared to the prior echo exam, there has been no change in TR severity. The right ventricular systolic pressure is estimated to be at least 23 mmHg based on an estimated right atrial pressure of 3 mm Hg. Procedure: A two-dimensional transthoracic echocardiogram with color flow and Doppler was performed. The study quality was technically difficult. Comparison is made with the echocardiogram of 04/19/2022. A contrast injection of Definity was performed to improve assessment of LV function. The patient has a paced rhythm. Left Ventricle: The left ventricle is grossly normal size. Proximal septal thickening is noted. There is no thrombus. The ejection fraction is estimated to be 60-65%. Left ventricular systolic function has significantly improved compared to the previous exam. The left ventricular ejection fraction is normal. Septal motion is consistent with conduction abnormality. MV E/A: 0.72. Right Ventricle: There is a pacemaker lead in the right ventricle. The right ventricle is grossly normal size. The right ventricle is not well visualized. In limited views, RV function appears to be preserved. Atria: The left atrial size is normal. There has been no significant change since the previous study. In apical views, linear artifact due to pacemaker lead seen in the left atrium. Right atrial size is normal. There is no Doppler evidence for an interatrial shunt. Mitral Valve: The mitral valve is not well visualized. There is moderate mitral annular calcification. There is no mitral valve stenosis. There is trace mitral regurgitation. Aortic Valve: The aortic valve is not well visualized. There is mild aortic valve sclerosis. There is mildly reduced leaflet mobility. There is no hemodynamically significant valvular aortic stenosis. No aortic regurgitation is present. Tricuspid Valve: The tricuspid valve is not well visualized, but is grossly normal. There is no tricuspid stenosis. There is mild tricuspid regurgitation. The right ventricular systolic pressure is estimated to be at least 23 mmHg based on an estimated right atrial pressure of 3 mm Hg. Compared to the prior echo exam, there has been no change in TR severity. Pulmonic Valve: The pulmonic valve is not well visualized. There is no pulmonic valvular stenosis. There is no pulmonic valvular regurgitation. Great Vessels: The aortic root is normal size. The ascending aorta is normal in size. The pulmonary artery is normal size. The IVC is of normal diameter and collapses greater than 50% with a sniff. This suggests a low right atrial pressure of 3 mm Hg. Pericardium/ Pleura There is a trivial pericardial effusion noted. There is an anterior echo-free space consistent with a fat pad. There are no echocardiographic indications of cardiac tamponade. There is no pleural effusion. MMode/2D Measurements & Calculations LVOT diam: 1.6 cm LA A2 area: 12.5 cm2 Ao root diam: 2.7 cm LA A4 area: 12.0 cm2 asc Aorta Diam: 2.9 cm LA length (vol): 4.6 cm LA vol: 27.8 ml LA vol index: 12.9 ml/m2 RA long axis: 4.2 cm RVD1 (basal): 4.0 cm RA area: 11.6 cm2 RA vol: 27.1 ml RA : 12.5 ml/m2 LVAd ap4: 23.6 cm2 LVAd ap2: 22.5 cm2 LVAs ap4: 7.7 cm2 LVLd ap2: 7.2 cm LVLs ap4: 5.8 cm LVAs ap2: 7.3 cm2 LVLs ap2: 5.4 cm TAPSE_phl: 0.61 cm Doppler Measurements & Calculations Ao V2 max: 150.0 cm/sec MV E max sheela: 60.0 cm/sec Ao V2 mean: 102.5 cm/sec MV A max sheela: 83.6 cm/sec Ao max P.0 mmHg MV E/A: 0.72 Ao mean P.0 mmHg MV dec time: 0.29 sec Ao V2 VTI: 26.3 cm TR max sheela: 224.0 cm/sec MV P1/2t-pr_phl: 84.0 msec TR max P.1 mmHg Reading Physician:05:16 PM
== END ==
PROVIDERS: Family Provider Family Medicine; PCP Student in an Organized Health Care Education/Training Program; Referring Provider Internal Medicine Cardiovascular Disease; Visit Provider Internal Medicine Cardiovascular Disease
DX: I44.7 Left bundle-branch block, unspecified (principal); I08.3 Combined rheumatic disorders of mitral, aortic and tricuspid valves; Z95.810 Presence of automatic (implantable) cardiac defibrillator
CPT/HCPCS: 93306; Q9957

== ENCOUNTER → 2024-02-05 11:35 | Outpatient (CLI) | payer MEDICARE, SELFPAY ==
[2020-12-29 17:34] VITALS: BMI 36.6
[2024-02-05 12:34] LABS: Hematocrit 38.4 % (36-46); Hemoglobin 13.1 g/dL (12.0-16.0); Mean Corpuscular Hemoglobin 33.6 PG (26-34); Mean Corpuscular Volume 98.6 fL (80-100); Platelet Count 314 X10^3/uL (150-400); Red Blood Cell Count 3.89 X10^6/uL (4.0-5.2); Red Cell Distribution Width 14.4 % (11.6-14.8); White Blood Cell Count 7.6 X10^3/uL (4.5-11.0)
[2024-02-05 12:57] LABS: HEMOLYSIS < 15 (0-50); Potassium 4.5 mmol/L (3.4-5.1)
[2024-02-05 12:59] LABS: Alanine Aminotransferase 29 IU/L (<35); Albumin 3.7 g/dL (3.5-5.0); Albumin Globulin Ratio 1.3 (1.0-2.8); Alkaline Phosphatase 86 U/L (38-126); Aspartate Aminotransferase 28 IU/L (14-36); BUN Creatinine Ratio 13.9 (6-22); Bilirubin Total 0.5 mg/dL (0.2-1.3); Blood Urea Nitrogen 15 mg/dL (7-17); Calcium 9.3 mg/dL (8.4-10.2); Carbon Dioxide 26 mmol/L (22-32); Chloride 106 mmol/L (98-107); Estimated Glomerular Filt Rate 55 mL/min (>60); Globulin 2.9 g/dL (1.7-4.1); Glucose 148 mg/dL (80-110); Sodium 138 mmol/L (137-145); Total Protein 6.6 g/dL (6.3-8.2)
== END ==
PROVIDERS: Family Provider Family Medicine; PCP Student in an Organized Health Care Education/Training Program; Referring Provider Nurse Practitioner; Visit Provider Nurse Practitioner
DX: I42.8 Other cardiomyopathies (principal)
CPT/HCPCS: 36415; 80053; 85027

== ENCOUNTER → 2024-07-21 11:23 | Outpatient (CLI) | payer MEDICARE, SELFPAY ==
[2020-12-29 17:34] VITALS: BMI 36.6
[2024-07-21 14:53] LABS: Alanine Aminotransferase 35 IU/L (<35); Albumin 3.8 g/dL (3.5-5.0); Albumin Globulin Ratio 1.3 (1.0-2.8); Alkaline Phosphatase 88 U/L (38-126); Aspartate Aminotransferase 40 IU/L (14-36); BUN Creatinine Ratio 18.4 (6-22); Bilirubin Total 0.6 mg/dL (0.2-1.3); Blood Urea Nitrogen 19 mg/dL (7-17); Calcium 9.9 mg/dL (8.4-10.2); Carbon Dioxide 27 mmol/L (22-32); Chloride 104 mmol/L (98-107); Cholesterol 132 mg/dL (140-199); Estimated Glomerular Filt Rate 57 mL/min (>60); Globulin 2.9 g/dL (1.7-4.1); Glucose 100 mg/dL (80-110); HDL Cholesterol 47 mg/dL (40-60); HEMOLYSIS < 15 (0-50); LDL Cholesterol Calculated 56 mg/dL (<100); Potassium 4.7 mmol/L (3.4-5.1); Sodium 139 mmol/L (137-145); Total Protein 6.7 g/dL (6.3-8.2); Triglycerides 147 mg/dL (35-150)
== END ==
PROVIDERS: Family Provider Family Medicine; PCP Student in an Organized Health Care Education/Training Program; Referring Provider Nurse Practitioner; Visit Provider Nurse Practitioner
DX: E78.5 Hyperlipidemia, unspecified (principal); I42.8 Other cardiomyopathies
CPT/HCPCS: 36415; 80053; 80061

== ENCOUNTER 2024-08-24 21:50 | Emergency (ER) | payer MEDICARE, SELFPAY ==
[2020-12-29 17:34] VITALS: BMI 36.6
[2024-08-24 21:57] VITALS: BP 126/61; PULSE 74; RESP 18; TEMP 36.6; O2SAT 92; BMI 44.6
--- NOTE | 2024-08-24 22:01 | DI.RAD.S_ITS ---
PROCEDURE: XR WRIST LT MIN 3V INDICATIONS: fall with pain in left wrist TECHNIQUE: 4 views of the wrist were acquired. COMPARISON: None. FINDINGS: Bones: No fractures or dislocations. No navicular fractures are seen. No suspicious bony lesions. Degenerative changes are seen throughout, which are most prominent involving the 1st carpometacarpal joint. Milder degenerative changes are seen elsewhere. Soft tissues: No suspicious soft tissue calcifications. IMPRESSION: No displaced fractures are seen. If there is snuffbox tenderness (or other clinical suspicion for a fracture not seen on these images) then a repeat examination would be recommended in 10 to 14 days, following splinting. Dictated by: Stu Morris M.D. on 08/24/2024 at 21:30 Approved by: Stu Morris M.D. on 08/24/2024 at 21:31
--- NOTE | 2024-08-24 23:39 | ED_ITS ---
HPI - Extremity Injury (Upper) General Chief Complaint: Extremity Injury, Upper Stated Complaint: lt arm injury Time Seen by Provider: 08/24/24 23:01 Source: patient Mode of arrival: Ambulatory History of Present Illness HPI narrative: 74-year-old female presents for left wrist pain. Patient states that she walks with a cane at baseline and while walking she tripped over her feet, catching herself on an outstretched hand. She has been trying to take Tylenol at home for pain without relief. Related Data Previous Rx's Medication Instructions Recorded hydrocodone 5 mg-acetaminophen 325 1 tab PO Q8H PRN pain #10 tabs 08/25/24 mg tablet Allergies Allergy/AdvReac Type Severity Reaction Status Date / Time No Known Drug Allergies Allergy Verified 12/30/20 09:08 Patient History Medical History Breast cancer Surgical History History of hysterectomy History of lumpectomy of right breast Family History Sister Kidney disease Diabetes mellitus Congestive heart failure Social History household members: spouse Smoking Status: Former smoker alcohol intake: never Smoking Status: Former smoker tobacco type: cigarettes Exam Initial Vital Signs Initial Vital Signs: Vital Signs Temperature 97.8 F 08/24/24 21:57 Pulse Rate 74 08/24/24 21:57 Respiratory Rate 18 08/24/24 21:57 Blood Pressure 126/61 08/24/24 21:57 Pulse Oximetry 92 08/24/24 21:57 Oxygen Delivery Method Room Air 08/24/24 21:57 Const: Awake, alert, no acute distress, nontoxic appearing MSK: Generalized swelling of left wrist without obvious deformity, palpable radial pulses, sensation intact, generalized tenderness along wrist Skin: Warm, Dry, intact, no rashes Neuro: AO x3, CN II-XII grossly intact, moves all extremities Course Orders Ordered: ED Orders 08/24/24 22:01 XR wrist LT min 3V Stat Discontinued Medications Hydrocodone Bitart/Acetaminophen (Hydrocodone/Acet 5/325 Prepack) 1 bottle MISC DIRECTED ONE Stop: 08/24/24 23:43 Last Admin: 08/24/24 23:47 Dose: 1 bottle Documented By: ESTHELA Vital Signs Vital signs: Vital Signs - 8 hr 08/24/24 21:57 08/25/24 00:35 Temperature 97.8 F Pulse Rate 74 84 Respiratory Rate 18 20 Blood Pressure 126/61 131/81 Pulse Oximetry 92 96 Oxygen Delivery Method Room Air Room Air MDM - Extremity Injury (Upper) Imaging Data Extremity x-ray #1: Radiologist's Impression: ADDENDUMThis report includes an Addendum and supersedes previous reports for this exam. PROCEDURE: XR WRIST LT MIN 3V INDICATIONS: fall with pain in left wrist TECHNIQUE: 4 views of the wrist were acquired. COMPARISON: None. FINDINGS: Bones: No fractures or dislocations. No navicular fractures are seen. No suspicious bony lesions. Degenerative changes are seen throughout, which are most prominent involving the 1st carpometacarpal joint. Milder degenerative changes are seen elsewhere. Soft tissues: No suspicious soft tissue calcifications. IMPRESSION: No displaced fractures are seen. If there is snuffbox tenderness (or other clinical suspicion for a fracture not seen on these images) then a repeat examination would be recommended in 10 to 14 days, following splinting. Dictated by: Stu Morris M.D. on 08/24/2024 at 21:30 Approved by: Stu Morris M.D. on 08/24/2024 at 21:31 ADDENDUM: This case was reviewed at the request of Dr. James and discussed by telephone at 11:44 p.m. [place] time on August 24, 2024. Upon further review, there is a mildly displaced, comminuted fracture of the distal radius, with intra-articular involvement. There is an associated mildly displaced ulnar styloid fracture, which may be remote. If it would be helpful for clinical management decision making in this patient with this given history, please consider a dedicated wrist CT for further evaluation. Dictated by: Stu Morris M.D. on 08/24/2024 at 22:44 Approved by: Stu Morris M.D. on 08/24/2024 at 22:46 [facility] Narrative Medical decision making narrative: Left wrist pain. Neurovascularly intact. Initial x-ray report noted no fractures, however on close review there does appear to be a fracture line on the lateral view. Case reviewed with Radiology, who confirmed there is a minimally displaced fracture of the distal radius. There may be ulnar styloid fracture as well, however this is possibly remote. Patient placed in volar splint. Counseled to follow up with orthopedics. Pain medications sent to pharmacy of choice. Discharge Plan Departure Patient Disposition: Home Clinical Impression: Distal radius fracture, left Instructions: DI for Wrist Fracture Activity Restrictions/Additional Instructions: You have a fracture of your distal radius. Wear the splint until you follow up with Orthopedic surgery. Elevate your wrist above heart level to help decrease swelling and pain. Pain medications has been sent to your pharmacy. Do not take this medication with alcohol or before driving as this medication can make you dizzy and puts you at increased risk of falling and accident. This medication also causes constipation, so make sure that you take a stool softener with this medication. Prescriptions: New hydrocodone-acetaminophen 5-325 mg tablet 1 tab PO Q8H PRN (Reason: pain) Qty: 10 0RF Referrals: Lai Jimenez MD [Primary Care Provider] - Zack Temple MD [Physician] - Stand Alone Forms: Patient Portal/API/Survey
[2024-08-24] MEDS: HYDROCODONE/ACET 5/325 PREPACK 1 BOTTLE MISC (23:47)
[2024-08-25 00:35] VITALS: BP 131/81; PULSE 84; RESP 20; O2SAT 96
== END 2024-08-25 00:35 | disposition home or self-care (01) ==
PROVIDERS: Emergency Provider Emergency Medicine; Family Provider Family Medicine; PCP Student in an Organized Health Care Education/Training Program
DX: S52.572A Other intraarticular fracture of lower end of left radius, initial encounter for closed fracture (principal); W01.0XXA Fall on same level from slipping, tripping and stumbling without subsequent striking against object, initial encounter; Y93.01 Activity, walking, marching and hiking
CPT/HCPCS: 29125; 73110; 99282; 99283

== ENCOUNTER → 2025-01-06 12:18 | Outpatient (CLI) | payer MEDICARE, SELFPAY ==
[2020-12-29 17:34] VITALS: BMI 36.6
[2025-01-06 13:05] LABS: Alanine Aminotransferase 29 IU/L (<35); Albumin Globulin Ratio 1.3 (1.0-2.8); Alkaline Phosphatase 84 U/L (38-126); Aspartate Aminotransferase 30 IU/L (14-36); BUN Creatinine Ratio 18.4 (6-22); Bilirubin Total 0.7 mg/dL (0.2-1.3); Blood Urea Nitrogen 16 mg/dL (7-17); Calcium 10.4 mg/dL (8.4-10.2); Carbon Dioxide 29 mmol/L (22-32); Chloride 103 mmol/L (98-107); Estimated Glomerular Filt Rate > 60 mL/min (>60); Globulin 3.1 g/dL (1.7-4.1); Glucose 118 mg/dL (70-99); HEMOLYSIS < 15 (0-50); Magnesium 1.9 mg/dL (1.6-2.3); Potassium 4.6 mmol/L (3.4-5.1); Sodium 139 mmol/L (137-145); Total Protein 7.1 g/dL (6.3-8.2)
== END ==
PROVIDERS: Family Provider Family Medicine; PCP Student in an Organized Health Care Education/Training Program; Referring Provider Nurse Practitioner; Visit Provider Nurse Practitioner
DX: I42.8 Other cardiomyopathies (principal)
CPT/HCPCS: 36415; 80053; 83735

== ENCOUNTER → 2025-03-10 10:39 | Outpatient (CLI) | payer MEDICARE, SELFPAY ==
[2020-12-29 17:34] VITALS: BMI 36.6
[2025-03-10 11:41] LABS: Hemoglobin A1C% w Est Avg Glu 6.3 % (4.0-6.0)
== END ==
PROVIDERS: Family Provider Family Medicine; PCP Student in an Organized Health Care Education/Training Program; Referring Provider Student in an Organized Health Care Education/Training Program; Visit Provider Student in an Organized Health Care Education/Training Program
DX: Z00.00 Encounter for general adult medical examination without abnormal findings (principal)
CPT/HCPCS: 36415; 83036

== ENCOUNTER → 2025-08-04 10:13 | Outpatient (CLI) | payer MEDICARE, SELFPAY ==
[2020-12-29 17:34] VITALS: BMI 36.6
[2025-08-04 11:47] LABS: Alanine Aminotransferase 32 IU/L (<35); Albumin 3.8 g/dL (3.5-5.0); Albumin Globulin Ratio 1.3 (1.0-2.8); Alkaline Phosphatase 67 U/L (38-126); Blood Urea Nitrogen 16 mg/dL (7-17); Calcium 11.5 mg/dL (8.4-10.2); Carbon Dioxide 25 mmol/L (22-32); Chloride 105 mmol/L (98-107); Cholesterol 117 mg/dL (140-199); Estimated Glomerular Filt Rate > 60 mL/min (>60); Globulin 3.0 g/dL (1.7-4.1); Glucose 101 mg/dL (70-99); HDL Cholesterol 38 mg/dL (40-60); HEMOLYSIS < 15 (0-50); Potassium 4.1 mmol/L (3.4-5.1); Sodium 140 mmol/L (137-145); Total Protein 6.8 g/dL (6.3-8.2); Triglycerides 121 mg/dL (35-150)
== END ==
PROVIDERS: Family Provider Family Medicine; PCP Student in an Organized Health Care Education/Training Program; Referring Provider Internal Medicine Cardiovascular Disease; Visit Provider Internal Medicine Cardiovascular Disease
DX: E78.5 Hyperlipidemia, unspecified (principal); I48.0 Paroxysmal atrial fibrillation
CPT/HCPCS: 36415; 80053; 80061